=== PATIENT | male | born 1945 | race Caucasian/White ===

== ENCOUNTER 2018-01-07 11:42 | Observation (INO) | payer OTHER ==
[2018-01-07 12:32] LABS: Absolute Lymphocytes (CBC) 0.5 K/uL (0.7-4.9); Absolute Monocytes 0.4 K/uL (0.1-1.3); Absolute Neutrophil 7.7 K/uL (1.8-8.0); Basophils % 0.4 % (0-1.3); Eosinophils % 0.5 % (0-4.4); Hematocrit 44.1 % (39.6-49.0); Lymphocytes % 6.1 % (15.3-44.8); MCH 31.3 pg (27.0-35.0); MCV 92.2 fL (80-100); MPV 10.3 fL (7.6-11.3); Monocytes % 4.4 % (3.3-12.3); RBC Red Blood Cell Count 4.78 M/uL (4.33-5.43)
[2018-01-07 12:54] LABS: Albumin 3.8 g/dL (3.4-5.0); Bilirubin Direct 0.2 mg/dL (0-0.2); Bilirubin Total 0.9 mg/dL (0.2-1.0); Potassium 4.2 mmol/L (3.5-5.1); Protein, Total 8.1 g/dL (6.4-8.2)
[2018-01-07] MEDS ORDERED: ONDANSETRON 4 MG/2 ML VIAL ONE (12:58)
[2018-01-07] MEDS ORDERED: NA CHLORIDE 0.9% 500 ML ONE ×2 (12:58→16:32)
--- NOTE | 2018-01-07 14:46 | RAD REPORT ---
EXAM DESCRIPTION: CT - Abdomen Pelvis Wo Contrast - 01/07/2018 2:25 pm CLINICAL HISTORY: Abdominal pain. RLQ/lateral flank pain COMPARISON: Stone Protocol dated 08/20/2015 TECHNIQUE: CT imaging of the abdomen and pelvis was performed without contrast. Solid organ, bowel a nd vascular assessment is limited due to lack of IV and oral contrast. All CT scans are performed using dose optimization technique as appropriate and may include automated exposure control or mA/KV adjustment according to patient size. FINDINGS: The lower lung jay are clear. The liver, spleen, pancreas, adrenal glands and left kidney are within normal limits for a limited no n-contrast examination.Moderate right hydronephrosis and hydroureter is present caused by a 5 mm ston e (300 HU) mid right ureter. No bowel obstruction, free air, free fluid or abscess. Sigmoid diverticulosis coli is present without diverticulitis. The appendix is not identified as a discrete structure, however, no secondary findin gs of appendicitis are identified. Prominent degenerative changes are present L5-S1.Moderate to large fat containing left inguinal herni a. IMPRESSION: Moderate right hydronephrosis and hydroureter caused by 5 mm calculus mid right ureter. A limited non-contrast examination was performed as detailed.
[2018-01-07 15:42] LABS: Urine Bacteria <20 /HPF (NONE SEEN); Urine RBC <5 /HPF (NONE SEEN)
--- NOTE | 2018-01-07 15:42 | ER ---
Nurse's Notes [facility] Emergency Department Name: Ángel Saucedo Jr Age: 72 yrs Sex: Male : 1945 Arrival Date: 01/07/2018 Time: 11:44 Bed 5 Private MD: Jj Steel Diagnosis: Hydronephrosis with renal and ureteral calculous obstruction-Right;Acute kidney failure Presentation: 01/07 11:59 Presenting complaint: RLQ pain and fever x 2 days. TMAX 101. Transition of care: hb patient was not received from another setting of care. Onset of symptoms was January 06, 2018. Risk Assessment: Do you want to hurt yourself or someone else? Patient reports no desire to harm self or others. Care prior to arrival: None. 11:59 Method Of Arrival: Ambulatory 11:59 Acuity: DES 3 hb 12:30 Initial Sepsis Screen: Does the patient meet any 2 criteria? HR > 90 bpm. No. Patient's aj1 initial sepsis screen is negative. Does the patient have a suspected source of infection? Yes: Acute abdominal pain. Historical: - Allergies: 12:06 No Known Allergies; hb - Home Meds: 12:06 losartan-hydrochlorothiazide 50-12.5 mg oral tab 1 tab once daily [Active]; amlodipine hb 10 mg tab 1 tab once daily [Active]; metformin 1,000 mg Oral tab 1 tab 2 times per day [Active]; simvastatin 40 mg Oral tab 1 tab once daily [Active]; pantoprazole 40 mg oral TbEC 1 tab once daily [Active]; meloxicam 15 mg oral tab 1 tab once daily [Active]; aspirin 81 mg oral TbEC [Active]; Centrum Silver 400-250 mcg oral chew [Active]; glucosamine-chondroitin 500-400 mg oral cap [Active]; Viagra 100 mg Oral tab 1 tab once daily [Active]; Farxiga 5 mg oral tab 1 tab once daily [Active]; - PMHx: 18:21 Hypertension; Diabetes - NIDDM; GERD; Hyperlipidemia; aj1 - Immunization history:: Adult Immunizations up to date. - Social history:: Smoking status: Patient/guardian denies using tobacco. - Ebola Screening: : No symptoms or risks identified at this time. Screenin:06 Abuse screen: Denies threats or abuse. Denies injuries from another. Nutritional hb screening: No deficits noted. Tuberculosis screening: No symptoms or risk factors identified. Fall Risk None identified. Assessment: 12:30 General: Appears in no apparent distress. uncomfortable, Behavior is calm, cooperative, aj1 appropriate for age. Pain: Complains of pain in right lower quadrant Pain currently is 3 out of 10 on a pain scale. Neuro: Level of Consciousness is awake, alert, obeys commands. Cardiovascular: Patient's skin is warm and dry. Respiratory: Airway is patent Respiratory effort is even, unlabored, Respiratory pattern is regular, symmetrical. GI: Abdomen is non-distended, Bowel sounds present X 4 quads. Abd is soft X 4 quads Reports lower abdominal pain. : No signs and/or symptoms were reported regarding the genitourinary system. EENT: No signs and/or symptoms were reported regarding the EENT system. Derm: No signs and/or symptoms reported regarding the dermatologic system. Skin is pink, warm \T\ dry. normal. Musculoskeletal: No signs and/or symptoms reported regarding the musculoskeletal system. Circulation, motion, and sensation intact. 12:47 Reassessment: Notified CT that patient has finished his contrast. aj1 13:12 Reassessment: Patient states that he is not nauseated and does not want to take the aj1 Zofran at this time. 13:12 Reassessment: Patient appears in no apparent distress at this time. No changes from aj1 previously documented assessment. Patient and/or family updated on plan of care and expected duration. Pain level reassessed. Patient is alert, oriented x 3, equal unlabored respirations, skin warm/dry/pink. 14:30 Reassessment: Patient appears in no apparent distress at this time. No changes from aj1 previously documented assessment. Patient and/or family updated on plan of care and expected duration. Pain level reassessed. Patient is alert, oriented x 3, equal unlabored respirations, skin warm/dry/pink. 15:10 Reassessment: Patient states that he does not want to have his IV restarted., states aj1 that he is going to leave in 30 minutes. Notified JESSICA Ledesma. 16:30 Reassessment: Patient appears in no apparent distress at this time. No changes from aj1 previously documented assessment. Patient and/or family updated on plan of care and expected duration. Pain level reassessed. Patient is alert, oriented x 3, equal unlabored respirations, skin warm/dry/pink. 17:30 Reassessment: Patient appears in no apparent distress at this time. No changes from andrew1 previously documented assessment. Patient and/or family updated on plan of care and expected duration. Pain level reassessed. Patient is alert, oriented x 3, equal unlabored respirations, skin warm/dry/pink. 17:45 Reassessment: Patient admit pending being seen by Dr. Mosley. JESSICA Ledesma spoke to Dr. sirisha Mosley on the phone who said he is on his way to see the patient now. 17:55 Reassessment: Notified JESSICA Ledesma of patient's temperature. Order received to sirisha administer 1 Gram Tylenol PO and given an additional 1 Gm of Rocephin IV to patient. 18:00 Reassessment: Patient states that he is not in pain and he is not feeling nauseated. He sirisha does not want pain or nausea medication. 18:17 Reassessment: Dr. Mosley at bedside. aj1 Vital Signs: 11:59 BP 146 / 84; Pulse 109; Resp 16; Temp 99; Pulse Ox 100% on R/A; Pain 3/10; hb 12:30 BP 139 / 75; Pulse 98; Resp 18; Pulse Ox 97% on R/A; aj1 13:30 BP 158 / 89; Pulse 109; Resp 18; Pulse Ox 98% on R/A; aj1 14:30 BP 134 / 90; Pulse 106; Resp 20; Pulse Ox 96% on R/A; aj1 16:30 BP 138 / 79; Pulse 116; Resp 20; Pulse Ox 95% ; aj1 17:30 BP 134 / 73; Pulse 111; Resp 20; Pulse Ox 95% ; aj1 17:50 BP 144 / 71; Pulse 114; Resp 20; Temp 101.6(O); Pulse Ox 95% on R/A; aj1 18:22 BP 152 / 64; Pulse 113; Resp 20; Pulse Ox 95% on R/A; aj1 ED Course: 11:44 Patient arrived in ED. sb2 11:44 Jj Steel MD is Private Physician. sb2 11:54 Ayla Rodrigues, MARY is Primary Nurse. hb 11:54 Carlito Simeon PA is PHCP. cp 11:54 Carlito Durham MD is Attending Physician. cp 12:01 Triage completed. hb 12:02 Arm band placed on right wrist. hb 12:20 Primary Nurse role handed off by Ayla Rodrigues, RN aj1 12:20 Alma Douglas, RN is Primary Nurse. aj1 12:27 Initial lab(s) drawn, by me, sent to lab. Inserted saline lock: 22 gauge in right jb1 antecubital area, using aseptic technique. Blood collected. 12:30 Patient has correct armband on for positive identification. Bed in low position. Call aj1 light in reach. Side rails up X 1. 12:30 No provider procedures requiring assistance completed. aj1 14:24 CT completed. Patient moved to CT via wheelchair. Patient moved back from CT. cw1 14:57 Patient's IV has infiltrated. Swelling noted to insertion site, patient denies pain. IV aj1 was dc'd, pressure drsg applied. No redness noted, IV catheter intact. Site covered with 4x4 and secured with tape. 15:26 Urine collected: clean catch specimen, cloudy, diane colored. jb1 15:36 Inserted saline lock: 22 gauge in left antecubital area, using aseptic technique. jb1 15:40 Guru Herndon DO is Hospitalizing Provider. cp 16:26 X-ray completed. Portable x-ray completed in exam room. Patient tolerated procedure la2 well. Administered Medications: 13:12 Drug: NS 0.9% 500 ml Route: IV; Rate: bolus; Site: left forearm; aj1 16:30 Follow up: IV Status: Completed infusion; IV Intake: 500ml aj1 16:31 Drug: Rocephin - (cefTRIAXone) 1 grams Route: IVPB; Infused Over: 30 mins; Site: left aj1 antecubital; 18:10 Follow up: Response: No adverse reaction aj1 18:10 Follow up: IV Status: Completed infusion aj1 16:31 Drug: NS 0.9% 500 ml Route: IV; Rate: bolus; Site: left antecubital; aj1 18:10 Follow up: IV Status: Completed infusion; IV Intake: 500ml aj1 18:09 Not Given (Patient Refused): Zofran 4 mg IVP once; over 2 minutes aj1 18:09 Not Given (Patient Refused): morphine 4 mg IVP once aj1 18:09 Not Given (Patient Refused): Zofran 4 mg IVP once; over 2 minutes aj1 18:11 Drug: Tylenol 1000 mg Route: PO; aj1 18:45 Follow up: Response: No adverse reaction aj1 18:12 Drug: Rocephin 1 grams Route: IV; Rate: calculated rate; Site: left antecubital; aj1 18:45 Follow up: IV Status: Completed infusion aj1 Intake: 16:30 IV: 500ml; Total: 500ml. aj1 18:10 IV: 500ml; Total: 1000ml. aj1 Outcome: 15:41 Decision to Hospitalize by Provider. cp 19:19 Admitted to OR aj1 19:19 Condition: stable 19:19 Discharge instructions given to patient, Instructed on the need for admit, Demonstrated understanding of instructions. 19:20 Patient left the ED. aj1 Signatures: Germain Figueroa jb1 Alma Douglas RN RN aj1 Brianna Martinez cw1 Carlito Simeon PA PA cp Ayla Rodrigues RN RN Emily Duvall la2 Kera Padgett sb2 Corrections: (The following items were deleted from the chart) 18:16 18:13 Reassessment: aj1 aj1
--- NOTE | 2018-01-07 15:42 | EDPHYS ---
Physician Documentation [facility] Name: Ángel Saucedo Jr Age: 72 yrs Sex: Male : 1945 Arrival Date: 01/07/2018 Time: 11:44 Bed 5 Private MD: Jj Steel ED Physician Carlito Durham HPI: 01/07 12:20 This 72 yrs old Male presents to ER via Ambulatory with complaints of cp Abdominal Pain, Fever. 12:20 The patient presents with abdominal pain right lower quadrant, right lower flank area. cp 12:20 Onset: The symptoms/episode began/occurred gradually, and became worse 3 day(s) ago. cp 12:20 The symptoms do not radiate. Associated signs and symptoms: Pertinent positives: cp constipation, fever, Pertinent negatives: chest pain, diarrhea, dysuria, headache, testicular pain, vomiting. Severity of pain: in the emergency department the pain is unchanged despite home interventions. Historical: - Allergies: 12:06 No Known Allergies; hb - Home Meds: 12:06 losartan-hydrochlorothiazide 50-12.5 mg oral tab 1 tab once daily [Active]; amlodipine hb 10 mg tab 1 tab once daily [Active]; metformin 1,000 mg Oral tab 1 tab 2 times per day [Active]; simvastatin 40 mg Oral tab 1 tab once daily [Active]; pantoprazole 40 mg oral TbEC 1 tab once daily [Active]; meloxicam 15 mg oral tab 1 tab once daily [Active]; aspirin 81 mg oral TbEC [Active]; Centrum Silver 400-250 mcg oral chew [Active]; glucosamine-chondroitin 500-400 mg oral cap [Active]; Viagra 100 mg Oral tab 1 tab once daily [Active]; Farxiga 5 mg oral tab 1 tab once daily [Active]; - PMHx: 18:21 Hypertension; Diabetes - NIDDM; GERD; Hyperlipidemia; aj1 - Immunization history:: Adult Immunizations up to date. - Social history:: Smoking status: Patient/guardian denies using tobacco. - Ebola Screening: : No symptoms or risks identified at this time. ROS: 12:23 Constitutional: Negative for body aches, chills, fever, poor PO intake. cp 12:23 Eyes: Negative for injury, pain, redness, and discharge. cp 12:23 ENT: Negative for drainage from ear(s), ear pain, sore throat, difficulty swallowing, difficulty handling secretions, hoarseness. 12:23 Cardiovascular: Negative for chest pain, edema, palpitations. 12:23 Respiratory: Negative for cough, shortness of breath, wheezing. 12:23 Abdomen/GI: Positive for abdominal pain, constipation, of the anterior aspect of right lateral abdomen and right lower quadrant, Negative for vomiting, diarrhea, anorexia, hematemesis, black/tarry stool, rectal bleeding. 12:23 Back: Negative for injury or acute deformity, decreased range of motion, pain at rest. 12:23 : Negative for urinary symptoms, testicular pain 12:23 MS/extremity: Negative for decreased range of motion, pain, paresthesias. 12:23 Skin: Negative for cellulitis, rash. 12:23 Neuro: Negative for altered mental status, dizziness, headache, weakness. 12:23 All other systems are negative. Exam: 12:27 Constitutional: The patient appears in no acute distress, alert, awake, cp non-diaphoretic, non-toxic, well developed, well nourished. 12:27 Head/Face: Normocephalic, atraumatic. cp 12:27 Eyes: Periorbital structures: appear normal, Pupils: equal, round, and reactive to light and accomodation, Extraocular movements: intact throughout, Conjunctiva: normal, no exudate, no injection, Sclera: no appreciated abnormality, Lids and lashes: appear normal, bilaterally. 12:27 ENT: External ear(s): are unremarkable, Nose: is normal, Mouth: Lips: moist, Oral mucosa: pink and intact, moist, Posterior pharynx: is normal, airway is patent, no erythema, no exudate, Voice: is normal. 12:27 Neck: ROM/movement: is normal, is supple, without pain, no range of motions limitations, no nuchal rigidity. 12:27 Chest/axilla: Inspection: normal, Palpation: is normal, no crepitus, no tenderness. 12:27 Cardiovascular: Rate: tachycardic, Rhythm: regular, Edema: is not appreciated, JVD: is not appreciated. 12:27 Respiratory: the patient does not display signs of respiratory distress, Respirations: normal, no use of accessory muscles, no retractions, no splinting, no tachypnea, labored breathing, is not present, Breath sounds: are clear throughout, no decreased breath sounds, no stridor, no wheezing. 12:27 Abdomen/GI: Inspection: abdomen appears normal, Bowel sounds: active, all quadrants, Palpation: soft, in all quadrants, mild abdominal tenderness, in the anterior aspect of right lateral abdomen and right lower quadrant, rebound tenderness, is not appreciated, involuntary guarding, is not appreciated. 12:27 Back: ROM is normal, CVA tenderness, is absent. 12:27 Musculoskeletal/extremity: Exam is negative for calf tenderness, decreased range of motion, edema. 12:27 Skin: cellulitis, is not appreciated, no rash present. 12:27 Neuro: Orientation: to person, place \T\ time. Mentation: is normal, Cerebellar function: is grossly normal, Motor: moves all fours, strength is normal, Sensation: is normal, Gait: is steady, at a normal pace, without difficulty. Vital Signs: 11:59 BP 146 / 84; Pulse 109; Resp 16; Temp 99; Pulse Ox 100% on R/A; Pain 3/10; hb 12:30 BP 139 / 75; Pulse 98; Resp 18; Pulse Ox 97% on R/A; aj1 13:30 BP 158 / 89; Pulse 109; Resp 18; Pulse Ox 98% on R/A; aj1 14:30 BP 134 / 90; Pulse 106; Resp 20; Pulse Ox 96% on R/A; aj1 16:30 BP 138 / 79; Pulse 116; Resp 20; Pulse Ox 95% ; aj1 17:30 BP 134 / 73; Pulse 111; Resp 20; Pulse Ox 95% ; aj1 17:50 BP 144 / 71; Pulse 114; Resp 20; Temp 101.6(O); Pulse Ox 95% on R/A; aj1 18:22 BP 152 / 64; Pulse 113; Resp 20; Pulse Ox 95% on R/A; aj1 MDM: 11:54 Patient medically screened. cp 13:00 Differential diagnosis: bowel obstruction, cholecystitis, Cholelithiasis, cp diverticulitis, gastritis, pancreatitis, Pyelonephritis, Ureterolithiasis, urinary tract infection. 15:25 Data reviewed: vital signs, nurses notes, lab test result(s), radiologic studies, CT cp scan, and as a result, I will admit patient. 15:28 Physician consultation: Isis Mosley MD was called at 15:22, was contacted at 15:22, regarding consult, patient's condition, would like admission per Dr. Guru Herndon DO. 01/07 12:16 Order name: Basic Metabolic Panel 01/07 12:16 Order name: CBC with Diff cp 01/07 12:16 Order name: Creatinine for Radiology 01/07 12:16 Order name: Hepatic Function cp 01/07 12:16 Order name: Lipase cp 01/07 12:16 Order name: Lactate 01/07 12:16 Order name: Urine Microscopic Only 01/07 12:37 Order name: CBC with Automated Diff; Complete Time: 13:11 EDMS 01/07 13:24 Interpretation: Normal except: PLT 149; HUNTER% 88.6; LYM% 6.1; LYMA 0.5. 01/07 12:52 Order name: Creatinine (Radiology Only); Complete Time: 13:11 EDMS 01/07 12:54 Order name: Basic Metabolic Panel; Complete Time: 13:11 EDMS 01/07 13:24 Interpretation: Normal except: GLUC 273; BUN 23; CRE 2.10; GFR 31. 01/07 12:54 Order name: Liver (Hepatic) Function; Complete Time: 13:11 EDMS 01/07 12:54 Order name: Lipase; Complete Time: 13:11 EDMS 01/07 13:11 Order name: Lactate; Complete Time: 13:23 EDMS 01/07 13:23 Interpretation: LAC 1.9; Reviewed. 01/07 15:43 Order name: Urine Microscopic Only; Complete Time: 17:07 EDMS 01/07 12:16 Order name: IV Saline Lock; Complete Time: 12:28 01/07 13:12 Order name: CT Abd/Pelvis - Without Cont 01/07 14:49 Order name: CT; Complete Time: 15:14 EDMS 01/07 15:24 Order name: XRAY KUB 01/07 16:29 Order name: Urine Dipstick--Ancillary (enter results) 01/07 16:39 Order name: RAD; Complete Time: 17:07 EDMS 01/07 12:16 Order name: Labs collected and sent; Complete Time: 12:28 01/07 12:16 Order name: Urine Dipstick-Ancillary (obtain specimen); Complete Time: 15:26 cp 01/07 15:17 Order name: NPO; Complete Time: 16:09 cp 01/07 15:23 Order name: NPO; Complete Time: 16:09 cp 01/07 17:44 Order name: Vital Signs: recheck to include temp; Complete Time: 17:56 cp Administered Medications: 13:12 Drug: NS 0.9% 500 ml Route: IV; Rate: bolus; Site: left forearm; aj1 16:30 Follow up: IV Status: Completed infusion; IV Intake: 500ml aj1 16:31 Drug: Rocephin - (cefTRIAXone) 1 grams Route: IVPB; Infused Over: 30 mins; Site: left aj1 antecubital; 18:10 Follow up: Response: No adverse reaction aj1 18:10 Follow up: IV Status: Completed infusion aj1 16:31 Drug: NS 0.9% 500 ml Route: IV; Rate: bolus; Site: left antecubital; aj1 18:10 Follow up: IV Status: Completed infusion; IV Intake: 500ml aj1 18:09 Not Given (Patient Refused): Zofran 4 mg IVP once; over 2 minutes aj1 18:09 Not Given (Patient Refused): morphine 4 mg IVP once aj1 18:09 Not Given (Patient Refused): Zofran 4 mg IVP once; over 2 minutes aj1 18:11 Drug: Tylenol 1000 mg Route: PO; aj1 18:45 Follow up: Response: No adverse reaction aj1 18:12 Drug: Rocephin 1 grams Route: IV; Rate: calculated rate; Site: left antecubital; aj1 18:45 Follow up: IV Status: Completed infusion aj1 Disposition: 01/07/18 15:41 Hospitalization ordered by Guru Herndon for Observation. Preliminary diagnosis are Hydronephrosis with renal and ureteral calculous obstruction - Right, Acute kidney failure. - Bed requested for Telemetry/MedSurg (observation). - Status is Observation. aj1 - Condition is Stable. - Problem is new. - Symptoms have improved. UTI on Admission? No Addendum: 01/09/2018 07:26 Co-signature as Attending Physician, Carlito Durham MD I agree with the assessment and c friedman plan of care. Signatures: Dispatcher [employer] Alexandra Concepcion Alma, MARY RN aj1 Carlito Durham MD MD cha Page, Corey, PA PA cp Ayla Rodrigues, MARY HERNANDEZ Corrections: (The following items were deleted from the chart) 01/07 13:24 13:24 Normal except: PLT 149; HUNTER% 88.6; LYM% 6.1. cp cp 17:39 15:41 Hospitalization Ordered by [facility] for Observation. Preliminary bd diagnosis is Hydronephrosis with renal and ureteral calculous obstruction - Right; Acute kidney failure. Bed requested for Telemetry/MedSurg (observation). Status is Observation. Condition is Stable. Problem is new. Symptoms have improved. UTI on Admission? No. cp 18:47 17:39 01/07/2018 15:41 Hospitalization Ordered by [facility] for Observation. bd Preliminary diagnosis is Hydronephrosis with renal and ureteral calculous obstruction - Right; Acute kidney failure. Bed requested for Telemetry/MedSurg (observation). Status is Observation. Condition is Stable. Problem is new. Symptoms have improved. UTI on Admission? No. bd 19:20 18:47 01/07/2018 15:41 Hospitalization Ordered by [facility] for Observation. aj1 Preliminary diagnosis is Hydronephrosis with renal and ureteral calculous obstruction - Right; Acute kidney failure. Bed requested for Telemetry/MedSurg (observation). Status is Observation. Condition is Stable. Problem is new. Symptoms have improved. UTI on Admission? No. bd
[2018-01-07 15:43] LABS: Urine Culture Reflex Order REFLEXED
[2018-01-07] MEDS ORDERED: TRAMADOL HCL 50 MG TAB PO PRN (15:51)
[2018-01-07] MEDS ORDERED: HYDRALAZINE HCL 20 MG/ML VIAL IV PRN (15:51)
[2018-01-07] MEDS ORDERED: HYDROCODONE/APAP 7.5/325 MG TAB PO PRN (15:51)
[2018-01-07] MEDS ORDERED: ACETAMINOPHEN 500 MG TAB PO PRN (15:51)
[2018-01-07] MEDS ORDERED: MORPHINE 2 MG/ML SYR IV PRN (15:51)
[2018-01-07] MEDS ORDERED: ONDANSETRON 4 MG/2 ML VIAL IV PRN (15:51)
[2018-01-07] MEDS ORDERED: NA CHLORIDE 0.9% 1,000 ML IV SCH (16:00)
--- NOTE | 2018-01-07 16:06 | P.HP ---
Certification for Inpatient Patient admitted to: Observation With expected LOS: <2 Midnights Patient will require the following post-hospital care: None Practitioner: I am a practitioner with admitting privileges, knowledge of patient current condition, hospital course, and medical plan of care. Services: Services provided to patient in accordance with Admission requirements found in Title 42 Section 412.3 of the Code of Federal Regulations Patient History Date of Service: 01/07/18 Primary Care Provider: Dr. Steel( I am covering for him) Reason for admission: Right flank pain History of Present Illness: 72-year-old male presented emergency room with increasing right flank pain. She reports increasing right flank plain over the last several days. Pain is mainly to the right upper quadrant and lower quadrant. Symptoms have not improved. He denies any significant nausea, vomiting. Patient reports a history of right kidney stone in the past. He also reports a history of diabetes, hypertension, GERD, hyperlipidemia. About a year and a half ago he had lithotripsy done with urology. In the ER patient evaluated. White count 8.7, hemoglobin 15. Sodium 136, potassium 4.2, BUN of 23, creatinine 2.0 with a GFR of 31. Glucose 273. CT scan shows to right hydronephrosis with hydroureter with a 5 mm stone at the mid right ureter. Patient will be admitted for further evaluation and treatment. Urology consulted in the emergency room. When I saw the patient ER, he appeared comfortable. Pain well controlled. No significant hematuria noted. Home medications list reviewed: Yes - Past Medical/Surgical History Diabetic: Yes -: Diabetes mellitus type 2, non-insulin dependent -: Hypertension -: GERD -: Nephrolithiasis -: Hyperlipidemia -: Appendectomy -: Lithotripsy Psychosocial/ Personal History: Patient - Family History Father -: Lung disease Mother -: Other (see notes) (Dementia) Sister -: Other (see notes) (Parkinson's) - Social History Smoking Status: Never smoker Alcohol use: Yes CD- Drugs: No Caffeine use: Yes Place of Residence: Home Review of Systems General: As per HPI Eyes: Unremarkable ENT: Unremarkable Respiratory: Unremarkable Cardiovascular: Unremarkable Gastrointestinal: As per HPI Genitourinary: As per HPI Musculoskeletal: Unremarkable Integumentary: Unremarkable Neurological: Unremarkable Lymphatics: Unremarkable Physical Examination - Physical Exam General: Alert, In no apparent distress, Oriented x3, Cooperative HEENT: Atraumatic, Normocephalic, PERRLA, Mucous membr. moist/pink Neck: Supple, No Thyromegaly Respiratory: Clear to auscultation bilaterally, Normal air movement Cardiovascular: Normal pulses, Regular rate/rhythm Gastrointestinal: Normal bowel sounds, Soft and benign, Non-distended, No masses , No rebound, No guarding, Tenderness (Pain to the right flank is dull) Musculoskeletal: No erythema, No tenderness, No warmth Integumentary: No tenderness/swelling, No erythema, No warmth, No cyanosis Neurological: Normal speech, Normal strength at 5/5 x4 extr, Normal tone, Normal affect - Studies Laboratory Data (last 24 hrs) 01/07/18 12:20: Creatinine 2.00 H 01/07/18 12:20: WBC 8.7, Hgb 15.0, Hct 44.1, Plt Count 149 L 01/07/18 12:20: Sodium 136, Potassium 4.2, BUN 23 H, Creatinine 2.10 H, Glucose 273 H, Total Bilirubin 0.9, AST 18, ALT 25, Alkaline Phosphatase 88, Lipase 163 Assessment and Plan - Plan Impression: Right flank pain secondary to right mid ureter calculus with right hydronephrosis and hydroureter complicated with acute renal failure Diabetes mellitus type 2, non insulin dependent Hypertension Hyperlipidemia GERD Plan: Right flank pain secondary to right mid ureter calculus with right hydronephrosis and hydroureter complicated with acute renal failure: Patient will be admitted. Will start IV antibiotic therapy. Will continue with IV fluids. ER has spoken to urology. Patient will remain NPO after midnight. Urological intervention planned for tomorrow. Will provide medication for pain. No Duarte is required at this time. Will start Flomax. Will discontinue nonsteroidal anti-inflammatories. Will recheck and monitor lab closely. Patient with history of ureteral stone in the past requiring lithotripsy. Diabetes mellitus type 2, non insulin dependent: Will hold his diabetic medication at this time. Will provide insulin sliding scale. Hypertension: We will hold losartan/hydrochlorothiazide. Will continue with Norvasc. Will provide hydralazine IV as needed. Hyperlipidemia: Will continue with his medication. GERD: Will continue with medication. Discharge Plan: Home Plan to discharge in: 24 Hours - Advance Directives Does patient have a Living Will: No Does patient have a Durable POA for Healthcare: No - Code Status/Comfort Care Code Status Assessed: Yes (Patient full code.) Time Spent Managing Pts Care (In Minutes): 55
[2018-01-07] MEDS: INSULIN -REGULAR HUMAN 50 UNIT/0.5 ML ML SQ SCH ×2 (16:30→21:00)
[2018-01-07] MEDS ORDERED: CEFTRIAXONE/SWI 1gm 1 GM/10 ML SYR ONE ×2 (16:33→18:12)
--- NOTE | 2018-01-07 16:38 | RAD REPORT ---
EXAM DESCRIPTION: RAD - Abdomen 1 View (KUB) - 01/07/2018 4:27 pm CLINICAL HISTORY: right ureter stone Pain COMPARISON: Abdomen 1 View (KUB) dated 09/18/2015; Abdomen 1 View (KUB) dated 09/08/2015; Abdomen 1 Vie w (KUB) dated 09/03/2015 FINDINGS: The bowel gas pattern is non-obstructive. No evidence of free air or pneumatosis. The maria luisa ent's known small right-sided ureter stone is obscured largely by bowel content and oral contrast.
[2018-01-07] MEDS ORDERED: ACETAMINOPHEN 500 MG TAB ONE (18:10)
[2018-01-07] MEDS ORDERED: MAGNESIUM HYDROXIDE 8% 30 ML PO PRN (18:21)
[2018-01-07] MEDS ORDERED: FENTANYL CITR 100 MCG/2 ML ONE ×2 (18:51→19:20)
[2018-01-07] MEDS ORDERED: PROPOFOL 200 MG/20 ML VIAL IV ONE (18:51)
[2018-01-07] MEDS ORDERED: NA CHLORIDE 0.9% 1,000 ML ONE (19:00)
[2018-01-07] MEDS ORDERED: ONDANSETRON HCL 40 MG/20 ML VIAL ONE (19:17)
[2018-01-07] MEDS ORDERED: KETOROLAC 30 MG/ML INJ ONE (19:17)
[2018-01-07] MEDS ORDERED: DEXAMETHASONE 10 MG/ML VIAL ONE (19:18)
[2018-01-07] MEDS ORDERED: Mastisol Adhesive Liq ONE (19:28)
--- NOTE | 2018-01-07 19:41 | RAD REPORT ---
EXAM DESCRIPTION: RAD - Urethrocystogrphy Retrograde - 01/07/2018 7:32 pm CLINICAL HISTORY: KIDNEY STONE COMPARISON: No comparisons FINDINGS: Fluoroscopic imaging is submitted of the abdomen from right sided stent placement procedur e. Details of the procedure not available. Total fluoro time: 0.2 minutes.
[2018-01-07 20:12] LABS: Urine Blood TRACE (NEG); Urine Glucose 3+ (NEG); Urine Protein NEGATIVE (NEG); Urine Specific Gravity 1.015 (1.005-1.030)
[2018-01-07 20:49] LABS: Urine Amorphous Sediment 2+ /HPF (NONE SEEN); Urine Bacteria 20-50 /HPF (NONE SEEN); Urine Culture Reflex Order REFLEXED
[2018-01-07] MEDS ORDERED: ATORVASTATIN 20 MG TAB PO SCH (21:00)
[2018-01-07] MEDS ORDERED: TAMSULOSIN 0.4 MG SR CAP PO SCH (21:00)
[2018-01-07 21:44] LABS: Urine Appearance TURBID; Urine Blood 3+ (NEG); Urine Color DK YELLOW; Urine Glucose 3+ (NEG); Urine Protein 2+ (NEG); Urine Specific Gravity >=1.030 (1.005-1.030)
[2018-01-07 21:50] LABS: Urine Bilirubin NEGATIVE (NEG); Urine Microscopic Reflex ORDER UMIC
[2018-01-07] MEDS: DOCUSATE CALCIUM 240 MG CAP PO SCH (21:52)
[2018-01-07 22:00] LABS: Urine Bacteria <20 /HPF (NONE SEEN); Urine Culture Reflex Order NOT NEEDED
[2018-01-07 22:01] LABS: Urine RBC >50 /HPF (NONE SEEN)
--- NOTE | 2018-01-08 01:18 | CON ---
History Of Present Illness: This is a pleasant 72-year-old male, who has a history of stones. He was in good state of health until October 24, 2017, when he developed sudden right flank pain. The pain went away after a few hours and then today he developed right lower quadrant pain, thought he had a gallbladder issue, came to the emergency room and CAT scan was done, showing 5 mm stone in the right mid ureter, Hounsfield unit 300, consistent with uric acid stone, has some minor hydro behind the stone. He has complained of temperature 101 in the ER, however. Past Medical History: Diabetes type 2, hypertension, GERD, nephrolithiasis, hyperlipidemia, appendectomy, lithotripsy. Psychosocial History: Personal: Patient is . Family History: Father had lung disease. Mother had dementia. Sister has Parkinson's. Social History: Never smoked. Some alcohol use. No drug use. Some caffeine use. Resides at home. Review of Systems: General: As per H and P. HEENT: Unremarkable. Respiratory: Unremarkable. Cardiovascular: Unremarkable. Gastrointestinal: Unremarkable. Genitourinary: As per H and P. Musculoskeletal: Unremarkable. Skin: Unremarkable. Neurologic: Unremarkable. Lymphatic: Unremarkable. Physical Examination: Vital Signs: Patient is afebrile. General: Alert, in no acute distress, oriented x3, cooperative, afebrile. Vital Signs: Stable. HEENT: Atraumatic, normocephalic. Neck: Supple. Respiratory: Clear. Cardiovascular: S1, S2. Gastrointestinal: Soft, nontender. Musculoskeletal: No erythema, no warmth, no tenderness. Skin: No rashes. Neurologic: Alert and oriented. Laboratory Studies: Showed UA still pending, RBC less than 5, WBC less than 10 , pH is still pending. Hematology; white count 8.7, H and H of 15 and 44, platelet count 149. Chemistry shows elevated creatinine of 2.1, BUN 23, sodium 136, potassium 4.2, chloride 104, carbon dioxide 23, glucose 223. CT scan as mentioned above. KUB done, but there is contrast in the bowels, unable to see the stone. Assessment: A 5 mm mid ureteral stone, diabetic patient, possible fever, normal white count. Plan: Plan is to go ahead and place a stent tonight. Stent may possible fragment the uric acid stone, then he can pass the fragments. The stent will help the obstruction due to hydronephrosis and less chance of sepsis, and deal with the stone at a later time. We will admit him tonight after surgery, possibly go home in the morning. Patient was given all the general information, alternatives, and risks, and wishes to proceed. SHERIN/ISAAC Voice ID: [id number] Report ID: [id number] ALMA
[2018-01-08 05:19] LABS: Absolute Lymphocytes (CBC) 0.4 K/uL (0.7-4.9); Absolute Monocytes 0.2 K/uL (0.1-1.3); Absolute Neutrophil 9.8 K/uL (1.8-8.0); Lymphocytes % 3.4 % (15.3-44.8); MCH 31.9 pg (27.0-35.0); MCV 92.2 fL (80-100); Monocytes % 2.3 % (3.3-12.3); RBC Red Blood Cell Count 4.23 M/uL (4.33-5.43)
[2018-01-08 05:30] LABS: Magnesium 2.5 mg/dL (1.8-2.4); Potassium 4.4 mmol/L (3.5-5.1)
--- NOTE | 2018-01-08 05:42 | OP ---
Surgeon: Isis Mosley MD Anesthesiologist: Dr. Perez. Preoperative Diagnosis: Right mid urolithiasis, Hounsfield unit 300, possible uric acid stone, hist ory of fever and hydronephrosis, history of diabetes. Postoperative Diagnosis: Right mid urolithiasis, Hounsfield unit 300, possible uric acid stone, hist ory of fever and hydronephrosis, history of diabetes. Procedure Performed: Cystoscopy, right retrograde pyelogram, and collection of urine from right carolyne l pelvis for culture and placement of a 6-Lao x 28 cm double-J stent with string attached to the s tent and taped to the penis. Anesthesia: General. Estimated Blood Loss: Minimal. Replacement: See record. Path Specimen: None. Complications: None. Drains: As above. Indications: The pleasant is a 72-year-old gentleman, presented with a right lower quadrant pain. W orkup revealed a stone as mentioned above. He was given all the general information, alternatives, r isks and wished to proceed. Description Of Procedure: He got 2 g of Rocephin preoperatively and was taken to the operative room, placed in a supine lithotomy position. He was prepped and draped in usual sterile fashion and herni a was noted in the left inguinal area. Cystoscopy was performed with a 21-Lao and 30-degree lens. Penile and bulbar urethra, prostatic urethra normal. In the prostatic urethra, small median lobe t hat was nonobstructive. Both orifices were following their normal anatomical position. The patient' s bladder was surveyed with a 30 and 70-degree lens. No other abnormalities were found. We then swi tched back to a 30-degree lens and perform a right retrograde pyelogram. We ureter opened all the wa y up to the renal pelvis. Obstruction revealed and the stone was not seen. He has had a slight hydr oureter down to the right lower ureter area. I would not pass a wire easily and I was passed a doubl e-J stent after he was measured stent coil in the renal pelvis and also in the bladder with good effl ux of urine. The patient tolerated the procedure well, went to recovery room in stable condition aft er his bladder was drained. PB/MODL Voice ID: [id number] Report ID: [id number]
[2018-01-08 05:59] LABS: Blood Morphology Comment NOT SEEN (NOT SEEN); Platelet Estimate ADEQ
[2018-01-08] MEDS ORDERED: PANTOPRAZOLE 40MG TABLET PO SCH (06:30)
[2018-01-08] MEDS: INSULIN -REGULAR HUMAN 50 UNIT/0.5 ML ML SQ SCH ×2 (07:30→11:30)
--- NOTE | 2018-01-08 08:53 | RAD REPORT ---
EXAM DESCRIPTION: CT - Stone Protocol - 01/08/2018 8:30 am CLINICAL HISTORY: Abdominal pain, flank pain, right ureteral stone COMPARISON: KUB January 07, CT study January 07 TECHNIQUE: Axial 5 mm thick images were obtained without oral or IV contrast. The [id number] span s the entirety of the system partially obscuring uppermost abdomen and lung bases. All CT scans are performed using dose optimization technique as appropriate and may include automated exposure control or mA/KV adjustment according to patient size. FINDINGS: Double pigtail stent has been placed in the right collecting system. Right-sided hydroneph rosis seen January 07 has resolved. No new left kidney or left collecting system finding. No suspicio us renal masses. Isodense masses and pyelonephritis are not excluded on a stone protocol CT scan. No urinary bladder suspicious finding. The previously detailed right ureteral calculus is not identifiab le along the course of the stent. This stone is not seen in the bladder in does not appear to have be en displaced retrograde into the pelvis or calices on the right. The Imaged portions of the liver, spleen and pancreas show no suspicious findings on non-contrast imaging . No gallbladder or biliary tree abnormality identified. No significant adrenal finding. No suspicious bowel findings. Large fat filled left inguinal hernia is again noted. Patient has a smaller fat filled right inguinal hernia. No free air, free fluid or inflammatory stranding. No significant bony abnormality. IMPRESSION: Pigtail stent has been placed into the right collecting system and is well positioned. R ight-sided hydronephrosis has resolved or nearly fully resolved. The previously detailed calcification is not identified within the right collecting system, along the course of the stent or in the urinary bladder. Isodense masses and pyelonephritis are not excluded on stone protocol technique.
[2018-01-08] MEDS ORDERED: AMLODIPINE 10 MG TAB PO SCH (09:00)
[2018-01-08] MEDS ORDERED: CEFTRIAXONE 1 GM/NS 50 ML 1 GM/50 ML BAG IV SCH (09:00)
[2018-01-08] MEDS: DOCUSATE CALCIUM 240 MG CAP PO SCH (09:50)
[2018-01-08 11:12] LABS: Potassium 4.1 mmol/L (3.5-5.1)
--- NOTE | 2018-01-08 11:20 | P.DS ---
Admission Date: 01/07/18 Discharge Date: 01/08/18 Primary Care Provider: Dr. Steel( I am covering for him) Disposition: ROUTINE DISCHARGE Discharge Condition: GOOD Reason for Admission: Right flank pain Consultations: Urology-Dr. Steel Procedures: Abdominal CT: COMPARISON: Stone Protocol dated 08/20/2015 TECHNIQUE: CT imaging of the abdomen and pelvis was performed without contrast. Solid organ, bowel and vascular assessment is limited due to lack of IV and oral contrast. All CT scans are performed using dose optimization technique as appropriate and may include automated exposure control or mA/KV adjustment according to patient size. FINDINGS: The lower lung jay are clear. The liver, spleen, pancreas, adrenal glands and left kidney are within normal limits for a limited non-contrast examination.Moderate right hydronephrosis and hydroureter is present caused by a 5 mm stone (300 HU) mid right ureter. No bowel obstruction, free air, free fluid or abscess. Sigmoid diverticulosis coli is present without diverticulitis. The appendix is not identified as a discrete structure, however, no secondary findings of appendicitis are identified. Prominent degenerative changes are present L5-S1.Moderate to large fat containing left inguinal hernia. IMPRESSION: Moderate right hydronephrosis and hydroureter caused by 5 mm calculus mid right ureter. A limited non-contrast examination was performed as detailed. Surgery: Surgeon: Isis Mosley MD Anesthesiologist: Dr. Perze. Preoperative Diagnosis: Right mid urolithiasis, Hounsfield unit 300, possible uric acid stone, history of fever and hydronephrosis, history of diabetes. Postoperative Diagnosis: Right mid urolithiasis, Hounsfield unit 300, possible uric acid stone, history of fever and hydronephrosis, history of diabetes. Procedure Performed: Cystoscopy, right retrograde pyelogram, and collection of urine from right renal pelvis for culture and placement of a 6-Bolivian x 28 cm double-J stent with string attached to the stent and taped to the penis. Anesthesia: General. Estimated Blood Loss: Minimal. Replacement: See record. Path Specimen: None. Complications: None. Drains: As above. Abdominal CT: COMPARISON: KUB January 07, CT study January 07 TECHNIQUE: Axial 5 mm thick images were obtained without oral or IV contrast. The [id number] spans the entirety of the system partially obscuring uppermost abdomen and lung bases. All CT scans are performed using dose optimization technique as appropriate and may include automated exposure control or mA/KV adjustment according to patient size. FINDINGS: Double pigtail stent has been placed in the right collecting system. Right-sided hydronephrosis seen January 07 has resolved. No new left kidney or left collecting system finding. No suspicious renal masses. Isodense masses and pyelonephritis are not excluded on a stone protocol CT scan. No urinary bladder suspicious finding. The previously detailed right ureteral calculus is not identifiable along the course of the stent. This stone is not seen in the bladder in does not appear to have been displaced retrograde into the pelvis or calices on the right. The Imaged portions of the liver, spleen and pancreas show no suspicious findings on non-contrast imaging. No gallbladder or biliary tree abnormality identified. No significant adrenal finding. No suspicious bowel findings. Large fat filled left inguinal hernia is again noted. Patient has a smaller fat filled right inguinal hernia. No free air, free fluid or inflammatory stranding. No significant bony abnormality. IMPRESSION: Pigtail stent has been placed into the right collecting system and is well positioned. Right-sided hydronephrosis has resolved or nearly fully resolved. The previously detailed calcification is not identified within the right collecting system, along the course of the stent or in the urinary bladder. Isodense masses and pyelonephritis are not excluded on stone protocol technique. Medical Problem List: Right flank pain secondary to right mid ureter calculus likely uric acid stone with right hydronephrosis,hydroureter, and UTI complicated with acute renal failure status post cystoscopy, right retrograde pyelogram and placement of 6 [place] by 28 cm double-J stent Diabetes mellitus type 2, non insulin dependent Hypertension Hyperlipidemia GERD Brief History of Present Illness: 72-year-old male presented emergency room with increasing right flank pain. She reports increasing right flank plain over the last several days. Pain is mainly to the right upper quadrant and lower quadrant. Symptoms have not improved. He denies any significant nausea, vomiting. Patient reports a history of right kidney stone in the past. He also reports a history of diabetes, hypertension, GERD, hyperlipidemia. About a year and a half ago he had lithotripsy done with urology. In the ER patient evaluated. White count 8.7, hemoglobin 15. Sodium 136, potassium 4.2, BUN of 23, creatinine 2.0 with a GFR of 31. Glucose 273. CT scan shows to right hydronephrosis with hydroureter with a 5 mm stone at the mid right ureter. Patient will be admitted for further evaluation and treatment. Urology consulted in the emergency room. When I saw the patient ER, he appeared comfortable. Pain well controlled. No significant hematuria noted. Hospital Course: Patient presented with right flank pain. Patient found to have right mid ureter calculus with right hydronephrosis, hydroureter and UTI complicated with acute renal failure. Patient evaluated in the emergency room. Patient seen by urology. Urological intervention was required. Cystoscopy, right retrograde pyelogram and placement of 6 [place] by 28 cm double-J stent was placed. Patient tolerated procedure well. No complication identified. Repeat CT scan showed no stone and resolution of hydronephrosis. At discharge patient without any significant pain and able to urinate. At discharge renal function also slightly improved. At discharge patient will continue with Cipro 250 mg 1 pill twice daily for 7 days. Patient will be provided a limited supply of tramadol 50 mg 1 pill 3 times a day as needed for pain. At discharge patient will follow up with urology later this week to follow up this hospitalization. Stent will need to be removed in the near future. Recommendation to recheck lab-BMP in 1 week to monitor resolution. Education on ureterolithiasis will be provided. Patient has diabetes mellitus type 2, [id number]. Patient may continue with his home medication-metformin 1000 mg 1 pill twice daily. Recommendation is to maintain blood sugars less than 140 fasting and less than 200 after meals. Further adjustment in his medication can be done by his PCP. Patient has hypertension. Patient will continue with his home medication of losartan/hydrochlorothiazide 50/12.5 mg 1 pill daily. Recommendation is to maintain blood pressures less 150/80. Further adjustment can be done by his PCP. Patient has hyperlipidemia. Patient will continue with his medication-Zocor 50 mg once daily. Patient has GERD. Patient will continue with his medication-Protonix 40 mg 1 pill once daily. Patient with osteoarthritis. Will recommend to discontinue Mobic due to acute renal failure. Patient may use Tylenol as needed for pain. A limited supply of medication or pain will be provided. Recommend to recheck lab-BMP in 1 week. If resolved patient may return in using Mobic for pain. Stool softener-docusate 100 mg daily will be provided. Vital Signs/Physical Exam: Temp Pulse Resp BP Pulse Ox 97.6 F 84 84 H 119/65 94 01/08/18 08:00 01/08/18 09:50 01/08/18 08:00 01/08/18 09:50 01/08/18 08:00 General: Alert, In no apparent distress, Oriented x3, Cooperative HEENT: Atraumatic Neck: Supple Respiratory: Clear to auscultation bilaterally, Normal air movement Cardiovascular: Normal pulses, Regular rate/rhythm Gastrointestinal: Normal bowel sounds, Soft and benign, Non-distended, No tenderness, No masses, No rebound, No guarding Musculoskeletal: No erythema, No tenderness, No warmth Integumentary: No tenderness/swelling, No erythema, No warmth, No cyanosis Neurological: Normal speech, Normal strength at 5/5 x4 extr, Normal tone, Normal affect Laboratory Data at Discharge: WBC 10.4 K/uL (4.3-10.9) D 01/08/18 04:37 Hgb 13.5 g/dL (13.6-17.9) L 01/08/18 04:37 Hct 39.0 % (39.6-49.0) L 01/08/18 04:37 Plt Count 128 K/uL (152-406) L 01/08/18 04:37 Sodium 138 mmol/L (136-145) 01/08/18 10:37 Potassium 4.1 mmol/L (3.5-5.1) 01/08/18 10:37 BUN 33 mg/dL (7-18) H 01/08/18 10:37 Creatinine 1.90 mg/dL (0.55-1.3) H 01/08/18 10:37 Glucose 256 mg/dL (74-106) H 01/08/18 10:37 Uric Acid 5.3 mg/dL (3.5-7.2) 01/07/18 21:52 Magnesium 2.5 mg/dL (1.8-2.4) H 01/08/18 04:37 Total Bilirubin 0.9 mg/dL (0.2-1.0) 01/07/18 12:20 AST 18 U/L (15-37) 01/07/18 12:20 ALT 25 U/L (12-78) 01/07/18 12:20 Alkaline Phosphatase 88 U/L (45-117) 01/07/18 12:20 Lipase 163 U/L (73-393) 01/07/18 12:20 Home Medications: Aspirin [Aspir-Low] 1 tab PO DAILY 01/07/18 Glucosam/Chondroitin/Diet Cb25 [Trepadone Capsule] 1 cap PO BID 01/07/18 Losartan/Hydrochlorothiazide [Losartan-Hctz 50-12.5 mg Tab] 1 tab PO DAILY 01/07 Metformin HCl 1 tab PO BID 01/07/18 Multivit-Min/FA/Lycopen/Lutein [Centrum Silver Men Tablet] 1 tab PO DAILY Pantoprazole [Protonix Tab*] 40 mg PO DAILY 01/07/18 Simvastatin 40 mg PO DAILY 01/07/18 Ciprofloxacin HCl [Cipro 250 MG Tablet*] 250 mg PO BID #14 tab 01/08/18 Docusate [Colace Cap*] 100 mg PO DAILY #30 cap 01/08/18 Tramadol HCl [Ultram] 50 mg PO TID PRN #20 tablet 01/08/18 New Medications: Ciprofloxacin HCl [Cipro 250 MG Tablet*] 250 mg PO BID #14 tab Docusate [Colace Cap*] 100 mg PO DAILY #30 cap Tramadol HCl [Ultram] 50 mg PO TID PRN #20 tablet PRN Reason: Pain Patient Discharge Instructions: 1. Patient will need a follow up with his PCP within 1 week to follow up this hospitalization. 2. Patient presented with right flank pain. Patient found to have right mid ureter calculus with right hydronephrosis, hydroureter and UTI complicated with acute renal failure. Patient evaluated in the emergency room. Patient seen by urology. Urological intervention was required. Cystoscopy, right retrograde pyelogram and placement of 6 [place] by 28 cm double-J stent was placed. Patient tolerated procedure well. No complication identified. Repeat CT scan showed no stone and resolution of hydronephrosis. At discharge patient without any significant pain and able to urinate. At discharge renal function also slightly improved. At discharge patient will continue with Cipro 250 mg 1 pill twice daily for 7 days. Patient will be provided a limited supply of tramadol 50 mg 1 pill 3 times a day as needed for pain. At discharge patient will follow up with urology later this week to follow up this hospitalization. Stent will need to be removed in the near future. Recommendation to recheck lab-BMP in 1 week to monitor resolution. Education on ureterolithiasis will be provided. 3. Patient has diabetes mellitus type 2, [id number]. Patient may continue with his home medication-metformin 1000 mg 1 pill twice daily. Recommendation is to maintain blood sugars less than 140 fasting and less than 200 after meals. Further adjustment in his medication can be done by his PCP. 4. Patient has hypertension. Patient will continue with his home medication of losartan/hydrochlorothiazide 50/12.5 mg 1 pill daily. Recommendation is to maintain blood pressures less 150/80. Further adjustment can be done by his PCP. 5. Patient has hyperlipidemia. Patient will continue with his medication -Zocor 50 mg once daily. 6. Patient has GERD. Patient will continue with his medication-Protonix 40 mg 1 pill once daily. 7. Patient with osteoarthritis. Will recommend to discontinue Mobic due to acute renal failure. Patient may use Tylenol as needed for pain. A limited supply of medication or pain will be provided. Recommend to recheck lab-BMP in 1 week. If resolved patient may return in using Mobic for pain. 8. Stool softener-docusate 100 mg daily will be provided. Diet: ADA Activity: Ad aric Time spent managing pt's care (in minutes): 55
[2018-01-08] MEDS ORDERED: CEFTRIAXONE/SWI 1gm 1 GM/10 ML SYR IV SCH (17:00)
== END 2018-01-08 14:11 | disposition home or self-care (01) ==
LOC: ER 11:42 → ERHOLD 15:51 → 2ND 19:56
PROVIDERS: ADMIT Family Medicine; ATTEND Family Medicine
PROC: 0T768DZ Dilation of Right Ureter with Intraluminal Device, Via Natural or Artificial Opening Endoscopic (ICD-10-PCS; principal; 2018-01-07 18:45)
DX: N13.2 Hydronephrosis with renal and ureteral calculous obstruction (principal); N39.0 Urinary tract infection, site not specified; N17.9 Acute kidney failure, unspecified; K40.90 Unilateral inguinal hernia, without obstruction or gangrene, not specified as recurrent; E11.9 Type 2 diabetes mellitus without complications; I10 Essential (primary) hypertension; E78.5 Hyperlipidemia, unspecified; K21.9 Gastro-esophageal reflux disease without esophagitis; M19.90 Unspecified osteoarthritis, unspecified site
CPT/HCPCS: 36415 ×2; 51610; 52332; 74018; 74176 ×2; 74450; 76377; 80048 ×3; 80076; 82962 ×4; 83605; 83690; 83735; 84550; 85025 ×2; 87040 ×2; 87077 ×3; 87086; 87088; 87186 ×3; 87205 ×4; 96361; 96365; 96366; 99285; G0378 ×2; J0696 ×2; J1100; J2405 ×2; J2704; J3010 ×2; J7030 ×2; Q9967; 81003; 81015

== ENCOUNTER 2021-05-18 14:04 | Inpatient (IN) | payer OTHER ==
--- NOTE | 2021-05-18 17:15 | RAD REPORT ---
EXAM DESCRIPTION: MRI - Tib Fib Left W/Wo Cont - 05/18/2021 5:05 pm CLINICAL HISTORY: SEE DX. Pain and swelling COMPARISON: No comparisons FINDINGS: Fluid and subcutaneous edema is seen in the pretibial soft tissues. [place] non enhancing s ubcutaneous lesions are present in the area of interest, measuring 20 x 11 in 16 x 10 mm. These may r epresent small hematomas. No underlying bone lesion is seen. No soft tissue mass. No fracture is evid ent. IMPRESSION: Subcutaneous edema and mild inflammatory changes are seen in the pretibial soft tissues. [place] lesions present in the region may represent hematomas although abscess not completely exclude d.
[2021-05-18] MEDS ORDERED: D10W 250 ML BAG IV PRN (17:55)
--- OUTSIDE RECORDS SUMMARY | 2021-05-18 17:55 | XMS REPORT | Continuity of Care Document ---
:1945 Author Organization [facility] t Address [address] [place] [address] Care Team Providers Name Role Phone Amilcar Mckinney MD Attending Clinician ENID MCKINNEY Attending Clinician Unavailable Ailin Garcia MD Attending Clinician ENID MCKINNYE Admitting Clinician Unavailable Payers Payer Name Policy Type Policy Number Effective Date Expiration Date S ource Problems Condition Condition Condition Status Onset Resolution Last Treating Co mments Source Name Details Category Date Date Treatment Clinician Date No known No known Disease [facility] active active College problems problems of Medicin e Allergies, Adverse Reactions, Alerts Allergy Allergy Status Severity Reaction(s) Onset Inactive Treating Comm ents Source Name Type Date Date Clinician NO KNOWN Allergy Active [facility] Social History Social Habit Start Date Stop Date Quantity Comments Source History [facility] Alcohol Std Drinks of Med icine History [facility] Alcohol Binge of Medicine History [facility] ge Alcohol Comment of Medici ne Exposure to Not sure [facility] e SARS-CoV-2 (event) of Med icine Alcohol intake 2021-04-06 2021-04-06 Current drinker [facility] [place] 00:00:00 00:00:00 of alcohol of Medicine (finding) History [facility] 2019-03-07 2019-03-07 5 [facility] ge Alcohol Frequency 00:00:00 00:00:00 of Medi cine Tobacco use and 2019-03-07 2019-03-07 Smokeless tobacco Ba or College exposure 00:00:00 00:00:00 non-user of Medicine Sex Ass[birth year] At [birth year] [facility] llege 00:00:00 00:00:00 of Medicine Smoking Status Start Date Stop Date Source Ex-smoker 2019-03-07 00:00:00 2019-03-07 00:00:00 [facility] Tammy vigil of Medicine Medications Ordered Filled Start Stop Current Ordering Indication Dosage Frequency Signature Comments Components Source Medication Medication Date Date Medication? Clinician (SIG) Name Name glucosamine Yes 1{tbl} Take 1 [facility] -chondroiti 2-28 Tablet by Col wright n 500-400 08:03: mouth. of MG tablet 04 Medicin e Multiple Yes Take by [facility] 2-28 mouth. Colleg e nerals 08:02: of (CENTRUM 07 Medicin SILVER e ULTRA MENS OR) Glucosamine Yes Take by [facility] 500 MG CAPS 2- mouth. Colleg e 08:02: of 07 Medicin e tadalafil Yes 5mg Take 1 [facility] (CIALIS) 5 2- Tablet by Moj[place] ege MG tablet 00:00: mouth of 00 daily. Medicin e glipiZIDE 2020-02 Yes [facility] (GLUCOTROL) 2-16 College 2.5 MG CR 00:00: of tablet 00 Medicin e Tamsulosin 2020-02 Yes [facility] HCl 0.4 MG 0-01 College CAPS 00:00: of 00 Medicin e Multiple Yes Take by [place] [facility] 2-10 mouth. Colleg e nerals 19:18: of (CENTRUM 10 Medicin SILVER e ULTRA MENS OR) Glucosamine Yes Take by [facility] 500 MG CAPS 2-10 mouth. Colleg e 19:18: of 10 Medicin e Multiple Yes Take by [facility] 1- mouth. Colleg e nerals 21:00: of (CENTRUM 36 Medicin SILVER e ULTRA MENS OR) Glucosamine Yes Take by [facility] 500 MG CAPS - mouth. Colleg e 21:00: of 36 Medicin e pantoprazol 2019-0 Yes [facility] 1-20 College (PROTONIX) 00:00: of 40 MG 00 Medicin tablet e pantoprazol 2019-0 Yes [facility] 1-20 College (PROTONIX) 00:00: of 40 MG 00 Medicin tablet e pantoprazol 2019- Yes [facility] e 1-20 College (PROTONIX) 00:00: of 40 MG 00 Medicin tablet e FARXIGA 10 2020-0 Yes [facility] TABS 1-13 College 00:00: of 00 Medicin e FARXIGA 10 2020-0 Yes [facility] MG TABS 1-13 College 00:00: of 00 Medicin e FARXIGA 10 2020-0 Yes [facility] MG TABS 1-13 College 00:00: of 00 Medicin e metformin 2020-0 Yes [facility] (GLUCOPHAGE 1-08 College ) 1000 MG 00:00: of tablet 00 Medicin e amlodipine 2020-0 Yes [facility] (NORVASC) 1-08 College 10 MG 00:00: of tablet 00 Medicin e simvastatin 2020-0 Yes [facility] (ZOCOR) 40 1-08 College MG tablet 00:00: of 00 Medicin e metformin 2020-0 Yes [facility] (GLUCOPHAGE 1-08 College ) 1000 MG 00:00: of tablet 00 Medicin e amlodipine 2020-0 Yes [facility] (NORVASC) 1-08 College 10 MG 00:00: of tablet 00 Medicin e simvastatin 2020-0 Yes [facility] (ZOCOR) 40 1-08 College MG tablet 00:00: of 00 Medicin e metformin 2020-0 Yes [facility] (GLUCOPHAGE 1-08 College ) 1000 MG 00:00: of tablet 00 Medicin e amlodipine 2020-0 Yes [facility] (NORVASC) 1-08 College 10 MG 00:00: of tablet 00 Medicin e simvastatin 2020-0 Yes [facility] (ZOCOR) 40 1-08 College MG tablet 00:00: of 00 Medicin e losartan-hy 2018-02 Yes TAKE 1 [facility] drochloroth 2-31 TABLET BY Col lege iazide 00:00: MOUTH of (HYZAAR) 00 EVERY DAY Medici n 50-12.5 MG e per tablet losartan-hy 2018-02 Yes TAKE 1 [facility] drochloroth 2-31 TABLET BY Col lege iazide 00:00: MOUTH of (HYZAAR) 00 EVERY DAY Medici n 50-12.5 MG e per tablet losartan-hy 2018-02 Yes TAKE 1 [facility] drochloroth 2-31 TABLET BY Col lege iazide 00:00: MOUTH of (HYZAAR) 00 EVERY DAY Medici n 50-12.5 MG e per tablet Vital Signs Vital Name Observation Time Observation Value Comments Source Systolic blood 2021-04-06 14:03:00 150 mm[Hg] [facility] pressure Medicine Diastolic blood 2021-04-06 14:03:00 82 mm[Hg] [facility] pressure Medicine Heart rate 2021-04-06 14:03:00 91 /min [facility] ollege of Medicine Body height 2021-04-06 14:03:00 181.6 cm [facility] ollege of [facility] Body weight 2021-04-06 14:03:00 90.719 kg [facility] ollege of [facility] BMI 2021-04-06 14:03:00 [facility] Systolic blood 2019-03-19 19:16:00 138 mm[Hg] [facility] of pressure Medicine Diastolic blood 2019-03-19 19:16:00 75 mm[Hg] [facility] Medicine Heart rate 2019-03-19 19:16:00 78 /min [facility] ol[facility] of Medicine Respiratory rate 2019-03-19 19:16:00 16 /min [facility] Body height 2019-03-19 19:16:00 180.3 cm [facility] ollege of [facility] Body weight 2019-03-19 19:16:00 94.802 kg [facility] BMI 2019-03-19 19:16:00 29.15 kg/m2 [facility] Oxygen saturation in 2019-03-19 19:16:00 96 /min [facility] Arterial blood by [facility] Pulse oximetry Systolic blood 2019-03-19 19:16:00 138 mm[Hg] [facility] pressure Medicine Diastolic blood 2019-03-19 19:16:00 75 mm[Hg] [facility] pressure Medicine Heart rate 2019-03-19 19:16:00 78 /min [facility] ol[facility] of Medicine Respiratory rate 2019-03-19 19:16:00 16 /min [facility] Body height 2019-03-19 19:16:00 180.3 cm [facility] ol[facility] of Medicine Body weight 2019-03-19 19:16:00 94.802 kg [facility] BMI 2019-03-19 19:16:00 29.15 kg/m2 [facility] Oxygen saturation in 2019-03-19 19:16:00 96 /min [facility] Arterial blood by [facility] Pulse oximetry Systolic blood 2019-03-07 20:50:00 159 mm[Hg] [facility] pressure Medicine Diastolic blood 2019-03-07 20:50:00 81 mm[Hg] [facility] Medicine Heart rate 2019-03-07 20:50:00 84 /min [facility] Body temperature 2019-03-07 20:50:00 36.72 [facility] Body height 2019-03-07 20:50:00 180.3 cm [facility] Body weight 2019-03-07 20:50:00 95.255 kg [facility] BMI 2019-03-07 20:50:00 29.29 kg/m2 [facility] Systolic blood 2019-03-07 20:50:00 159 mm[Hg] [facility] Medicine Diastolic blood 2019-03-07 20:50:00 81 mm[Hg] [facility] Medicine Heart rate 2019-03-07 20:50:00 84 /min [facility] Body temperature 2019-03-07 20:50:00 36.72 [facility] Body height 2019-03-07 20:50:00 180.3 cm [facility] Body weight 2019-03-07 20:50:00 95.255 kg [facility] BMI 2019-03-07 20:50:00 29.29 kg/m2 [facility] Procedures Procedure Date / Time Performing Clinician Source Performed ELECTROCARDIOGRAM COMPLETE 2019-03-19 19:26:25 Eamon Garcia [facility] POCT URINALYSIS DIPSTICK 2019-03-07 00:00:00 Elia Mckinney [facility] Plan of Care Planned Activity Planned Date Details Comments Source Future Scheduled 2022-04-06 CT ABDOMEN PELVIS W WO Expected: B [facility] Test 00:00:00 CONTRAST [code = 04/06/2022, Medicine 38612-0] Expires: 04/06/2022 Future Scheduled 2022-04-06 XR CHEST PA AND LATERAL Expected: [facility] Test 00:00:00 [code = 75376-8] 04/06/2022, of Medicine Expires: 04/06/2022 Future Scheduled 2021-04-06 Hepatitis C screening [facility] Test 08:33:02 (procedure) [code = of Medic ine 725121188] Future Scheduled 2021-04-06 ZOSTER VACCINE (1 of 2) [facility] College Test 08:33:02 [code = ZOSTER VACCINE of Me dicine (1 of 2)] Future Scheduled 2021-04-06 FALL SCREEN [code = FALL [facility] Test 08:33:02 SCREEN] of Medicine Future Scheduled 2021-04-06 Pneumococcal 65+ (1 of 1 [facility] Test 08:33:02 - PPSV23) [code = of Medicin e Pneumococcal 65+ (1 of 1 - PPSV23)] Future Scheduled 2021-04-06 MEDICARE AWV (Initial) B [facility] College Test 08:33:02 [code = MEDICARE AWV of Medi cine (Initial)] Future Scheduled 2021-04-06 FLU VACCINE > 6 MONTHS [facility] College Test 08:33:02 [code = FLU VACCINE > 6 of M edicine MONTHS] Future Scheduled 2021-04-06 Screening for malignant [facility] Test 08:33:02 neoplasm of colon of Medicin e (procedure) [code = 677066170] Future Scheduled 2021-04-06 COVID-19 Vaccine (1) [facility] Test 08:33:02 [code = COVID-19 Vaccine of Medicine (1)] Future Scheduled 2021-04-06 TETANUS SHOT (ADULT) [facility] Test 08:33:02 [code = TETANUS SHOT of Medi cine (ADULT)] Future Scheduled 2021-04-06 BMI FOLLOW UP PLAN [code [facility] Test 08:33:02 = BMI FOLLOW UP PLAN] of Med icine Future Scheduled FALL SCREEN [code = FALL [facility] Test SCREEN] of Medicine Future Scheduled PNEUMOVAX >=65 (PPSV23) [facility] Test [code = PNEUMOVAX >=65 of Me dicine (PPSV23)] Future Scheduled PREVNAR >= 65 (PCV13) [facility] College Test [code = PREVNAR >= 65 of Med icine (PCV13)] Future Scheduled MEDICARE AWV (Initial) [facility] [employer] Test [code = MEDICARE AWV of Medi cine (Initial)] Future Scheduled FLU VACCINE > 6 MONTHS [employer] Test [code = FLU VACCINE > 6 of M edicine MONTHS] Future Scheduled ELECTROCARDIOGRAM [facility] Test COMPLETE [code = 52153] of M edicine Future Scheduled COLON CANCER SCREENING: [facility] Test COLONOSCOPY [code = of Medic ine COLON CANCER SCREENING: COLONOSCOPY] Future Scheduled TETANUS SHOT (ADULT) [employer] Test [code = TETANUS SHOT of Medi cine (ADULT)] Future Scheduled BMI FOLLOW UP PLAN [code [facility] Test = BMI FOLLOW UP PLAN] of Med icine Future Scheduled HEPATITIS C SCREENING [facility] Test [code = HEPATITIS C of Medic ine SCREENING] Future Scheduled AAA Screen [code = AAA [facility] Test Screen] of Medicine Future Scheduled FALL SCREEN [code = FALL [facility] Test SCREEN] of Medicine Future Scheduled PNEUMOVAX >=65 (PPSV23) [facility] Test [code = PNEUMOVAX >=65 of Me dicine (PPSV23)] Future Scheduled PREVNAR >= 65 (PCV13) [employer] [facility] Test [code = PREVNAR >= 65 of Med icine (PCV13)] Future Scheduled MEDICARE AWV (Initial) [facility] [employer] Test [code = MEDICARE AWV of Medi cine (Initial)] Future Scheduled FLU VACCINE > 6 MONTHS [employer] Test [code = FLU VACCINE > 6 of M edicine MONTHS] Future Scheduled COLON CANCER SCREENING: [facility] Test COLONOSCOPY [code = of Medic ine COLON CANCER SCREENING: COLONOSCOPY] Future Scheduled TETANUS SHOT (ADULT) [employer] [employer] Test [code = TETANUS SHOT of Medi cine (ADULT)] Future Scheduled BMI FOLLOW UP PLAN [code [facility] Test = BMI FOLLOW UP PLAN] of Med icine Future Scheduled HEPATITIS C SCREENING [employer] [facility] [employer] Test [code = HEPATITIS C of Medic ine SCREENING] Future Scheduled AAA Screen [code = AAA [facility] Test Screen] of Medicine Future Scheduled XR CHEST PA AND LATERAL 1 Occurrences [facility] College Test [code = 67284-9] starting of Medicine 03/07/2019 until 10/06/2019 Encounters Start End Encounter Admission Attending Care Care Encounter Source Date/Time Date/Time Type Type Clinicians Facility Department ID 2021-04-06 2021-04-06 Office Link, [facility] [id number] [facility] 08:15:00 08:30:00 Visit Elia Fitzgerald AMBULATOR [id number] College Y 0.2.7.2.686 of [id number] [facility] justina 300 e 2019-04-02 2019-04-02 Outpatient [facility] [id number] [id number] [facility] 00:00:00 00:00:00 [id number] 2019-04-02 2019-04-02 [id number] [facility] 00:00:00 00:00:00 ELIA 2019-03-19 2019-03-19 Office Radha [facility] [id number] [facility] 12:46:46 13:26:46 Visit Eamon Parisi AMBULATOR 350.1.13.21 College Y 0.2.7.2.686 of [id number] Medi justina 375 e 2019-03-19 2019-03-19 Office Radha [facility] [id number] 12:46:46 13:26:46 Visit Eamon Parisi AMBULATOR 350.1.13.21 Y 0.2.7.2.686 [id number] 2019-03-07 2019-03-07 Office Amanda [facility] [id number] [facility] 14:02:52 16:51:39 Visit Elia Fitzgerald AMBULATOR 350.1.13.21 College Y 0.2.7.2.686 of [id number] [facility] justina 300 e 2019-03-07 2019-03-07 Office [facility] [id number] 14:02:52 16:51:39 Visit Elia Fitzgerald AMBULATOR 350.1.13.21 Y 0.2.7.2.686 [id number] Results Test Description Test Time Test Comments Results Result [facility] e Comments TISSUE EXAM 2019-04-09 Surgical Pathology 16:03:00 Report Case: [id number] Authorizing Provider: Elia Mckinney MD Collected: 04/04/2019 1208 Ordering Location: 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 - WHO/ISUP GRADE 3/4 - NO SARCOMATOID OR RHABDOID FEATURES SEEN - NO NECROSIS PRESENT - NO VASCULAR INVASION NOTED - TUMOR EXTENDS TO THE PARENCHYMAL TISSUE EDGE AND THE RENAL CAPSULE, FOCALLY (SEE COMMENT) - NO TUMOR IN THE PERINEPHRIC FAT - SEE SYNOPTIC REPORT Signing Pathologist Direct Phone Line: [phone] ally signed by Maria L Alvarez MD on 04/09/2019 at 4:03 PMIntraoperative correlation is recommendedKIDNEY: Nephrectomy (Kidney Res - All Specimens)SPECIMEN Procedure: Partial nephrectomy Specimen Laterality: Right TUMOR Tumor Site: Upper pole Tumor Site: Middle Histologic Type: Clear cell renal cell carcinoma Histologic Grade (WHO / ISUP Grade): G3: Nucleoli conspicuous and eosinophilic at 100x magnification Tumor Size: Greatest dimension in Centimeters (cm): 3.5 Centimeters (cm) Additional Dimension in Centimeters (cm): 3 Centimeters (cm) Additional Dimension in Centimeters (cm): 2.5 Centimeters (cm) Tumor Focality: Unifocal Tumor Extent: Tumor Extension: Tumor limited to kidney Accessory Findings: Sarcomatoid Features: Not identified Rhabdoid Features: Not identified Tumor Necrosis: Not identified Lymphovascular Invasion: Not identified MARGINS Margins: Involved by invasive carcinoma Margin(s): Renal parenchymal margin (partial nephrectomy only) LYMPH NODES Regional Lymph Nodes: No lymph nodes submitted or found PATHOLOGIC STAGE CLASSIFICATION (pTNM, AJCC 8th Edition) TNM Descriptors: Not applicable Primary Tumor (pT): pT1a Regional Lymph Nodes (pN): pNX ADDITIONAL FINDINGS Pathologic Findings in Nonneoplastic Kidney: Insufficient tissue Comment(s) Comment(s): Tumor abuts the parenchymal tissue edge. Intraoperative correlation is recommended to determine the status of the margin [id number] renal mass A.Right renal mass Specimen A received in formalin labeled with the patient's name, accession number and "right renal mass" is a 40.6 gm, 4.5 x 3.5 x 3.0 cm partial nephrectomy specimen with a 5.5 x 4.2 x 1.2 cm portion of adherent perirenal adipose tissue. The cortical surface is smallwood-red and smooth.The specimen is serially sectioned to reveal a yellow-orange, variegated, focally cystic mass measuring 3.5 x 3.0 x 2.5 cm. The mass abuts both the inked resection margin and the inked capsular surface, coming within less than 0.1 cm. A scant amount of red-brown kidney parenchyma is noted. The specimen is submitted in its entirety. Sectioning through the loosely adherent perinephric adipose tissue reveals a smallwood-yellow and lobulated cut surface. [employer]ch[employer] sections are submitted.Ink code: Resection margin-blue, capsular surface-black.Section code: A1, one end, perpendicular; A2-A16, remainder of specimen, sequentially submitted; A17-A19, opposing end, perpendicularly sectioned; A20, perinephric adipose tissue. LY/ewPERFORMED BASIC METABOLIC PANEL 2019-04-06 06:54:00 Test Item Value Reference Range Interpretation Comme nts SODIUM (BEAKER) (test code 137 meq/L 136-145 = 381) POTASSIUM (BEAKER) (test 3.9 meq/L 3.5-5.1 code = 379) CHLORIDE (BEAKER) (test 109 meq/L 98-107 H code = 382) CO2 (BEAKER) (test code = 22 meq/L 22-29 355) BLOOD UREA NITROGEN 11 mg/dL 7-21 (BEAKER) (test code = 354) CREATININE (BEAKER) (test 0.89 mg/dL 0.57-1.25 code = 358) GLUCOSE RANDOM (BEAKER) 128 mg/dL 70-105 H (test code = 652) CALCIUM (BEAKER) (test code 8.6 mg/dL 8.4-10.2 = 697) EGFR (BEAKER) (test code = 84 mL/min/1.73 sq m ESTIMATED GFR IS NOT 1092) ACCURATE CRE ATININE CLEARANCE IN [place] EDICTING GLOMERULAR FILT RATION RATE. ESTIMATED GFR IS NOT APPLICABLE FOR DIALYSIS PATIENTS. Screw Machine Operator ID - PIAYA LCBC W/PLT COUNT & AUTO [id number] 06:17:00 Test Item Value Reference Range Interpretation Comments WHITE BLOOD CELL COUNT (BEAKER) 9.8 K/ L 3.5-10.5 (test code = 775) RED BLOOD CELL COUNT (BEAKER) 4.17 M/ L 4.63-6.08 L (test code = 761) HEMOGLOBIN (BEAKER) (test code = 12.9 GM/DL 13.7-17.5 L 410) HEMATOCRIT (BEAKER) (test code = 39.0 % 40.1-51.0 L 411) MEAN CORPUSCULAR VOLUME (BEAKER) 93.5 fL 79.0-92.2 H (test code = 753) MEAN CORPUSCULAR HEMOGLOBIN 30.9 pg 25.7-32.2 (BEAKER) (test code = 751) MEAN CORPUSCULAR HEMOGLOBIN CONC 33.1 GM/DL 32.3-36.5 (BEAKER) (test code = 752) RED CELL DISTRIBUTION WIDTH 12.7 % 11.6-14.4 (BEAKER) (test code = 412) PLATELET COUNT (BEAKER) (test 123 K/CU MM 150-450 L code = 756) MEAN PLATELET VOLUME (BEAKER) 11.4 fL 9.4-12.4 (test code = 754) NUCLEATED RED BLOOD CELLS 0 /100 WBC 0-0 (BEAKER) (test code = 413) NEUTROPHILS RELATIVE PERCENT 77 % (BEAKER) (test code = 429) LYMPHOCYTES RELATIVE PERCENT 14 % (BEAKER) (test code = 430) MONOCYTES RELATIVE PERCENT 7 % (BEAKER) (test code = 431) EOSINOPHILS RELATIVE PERCENT 1 % (BEAKER) (test code = 432) BASOPHILS RELATIVE PERCENT 0 % (BEAKER) (test code = 437) NEUTROPHILS ABSOLUTE COUNT 7.53 K/ L 1.78-5.38 H (BEAKER) (test code = 670) LYMPHOCYTES ABSOLUTE COUNT 1.39 K/ L 1.32-3.57 (BEAKER) (test code = 414) MONOCYTES ABSOLUTE COUNT (BEAKER) 0.72 K/ L 0.30-0.82 (test code = 415) EOSINOPHILS ABSOLUTE COUNT 0.08 K/ L 0.04-0.54 (BEAKER) (test code = 416) BASOPHILS ABSOLUTE COUNT (BEAKER) 0.04 K/ L 0.01-0.08 (test code = 417) IMMATURE GRANULOCYTES-RELATIVE 0 % 0-1 PERCENT (BEAKER) (test code = 2801) POCT-GLUCOSE [id number] 18:34:00 Test Item Value Reference Range Interpretation Comments POC-GLUCOSE METER 155 mg/dL 70-110 H : TESTED A T [facility] 6720 (BEAKER) (test code [facility], = 1538) 69690: Screw Machine Operator/Techni mindy ID = [id number] for JAIM RADHA SHERIFFLUPE POCT-GLUCOSE [id number] 13:15:00 Test Item Value Reference Range Interpretation Comments POC-GLUCOSE METER 152 mg/dL 70-110 H : TESTED A T [facility] 6720 (BEAKER) (test code [facility], = 1538) 02607: Screw Machine Operator/Techni mindy ID = [id number] for JAIM E TATA, VALERIY BASIC METABOLIC [id number] 06:55:00 Test Item Value Reference Range Interpretation Comments SODIUM (BEAKER) 137 meq/L 136-145 (test code = 381) POTASSIUM (BEAKER) 3.8 meq/L 3.5-5.1 (test code = 379) CHLORIDE (BEAKER) 109 meq/L 98-107 H (test code = 382) CO2 (BEAKER) (test 22 meq/L 22-29 code = 355) BLOOD UREA NITROGEN 13 mg/dL 7-21 (BEAKER) (test code = 354) CREATININE (BEAKER) 1.10 mg/dL 0.57-1.25 (test code = 358) GLUCOSE RANDOM 122 mg/dL 70-105 H (BEAKER) (test code = 652) CALCIUM (BEAKER) 8.2 mg/dL 8.4-10.2 L (test code = 697) EGFR (BEAKER) (test 66 mL/min/1.73 ESTIMA GREGORY GFR IS code = 1092) sq m NOT ACCURATE CREATININE CLEARANCE IN PREDICTING GLOMERULAR FILTRATION RATE . ESTIMATED GFR I S NOT APPLICABLE FOR DIALYSIS PATIEN TS. Screw Machine Operator ID - PIAYA LCBC W/PLT COUNT & AUTO [id number] 06:14:00 Test Item Value Reference Range Interpretation Comments WHITE BLOOD CELL COUNT (BEAKER) 8.6 K/ L 3.5-10.5 (test code = 775) RED BLOOD CELL COUNT (BEAKER) 3.80 M/ L 4.63-6.08 L (test code = 761) HEMOGLOBIN (BEAKER) (test code = 11.8 GM/DL 13.7-17.5 L 410) HEMATOCRIT (BEAKER) (test code = 35.9 % 40.1-51.0 L 411) MEAN CORPUSCULAR VOLUME (BEAKER) 94.5 fL 79.0-92.2 H (test code = 753) MEAN CORPUSCULAR HEMOGLOBIN 31.1 pg 25.7-32.2 (BEAKER) (test code = 751) MEAN CORPUSCULAR HEMOGLOBIN CONC 32.9 GM/DL 32.3-36.5 (BEAKER) (test code = 752) RED CELL DISTRIBUTION WIDTH 13.0 % 11.6-14.4 (BEAKER) (test code = 412) PLATELET COUNT (BEAKER) (test 121 K/CU MM 150-450 L code = 756) MEAN PLATELET VOLUME (BEAKER) 11.3 fL 9.4-12.4 (test code = 754) NUCLEATED RED BLOOD CELLS 0 /100 WBC 0-0 (BEAKER) (test code = 413) NEUTROPHILS RELATIVE PERCENT 71 % (BEAKER) (test code = 429) LYMPHOCYTES RELATIVE PERCENT 19 % (BEAKER) (test code = 430) MONOCYTES RELATIVE PERCENT 8 % (BEAKER) (test code = 431) EOSINOPHILS RELATIVE PERCENT 1 % (BEAKER) (test code = 432) BASOPHILS RELATIVE PERCENT 1 % (BEAKER) (test code = 437) NEUTROPHILS ABSOLUTE COUNT 6.15 K/ L 1.78-5.38 H (BEAKER) (test code = 670) LYMPHOCYTES ABSOLUTE COUNT 1.66 K/ L 1.32-3.57 (BEAKER) (test code = 414) MONOCYTES ABSOLUTE COUNT (BEAKER) 0.73 K/ L 0.30-0.82 (test code = 415) EOSINOPHILS ABSOLUTE COUNT 0.04 K/ L 0.04-0.54 (BEAKER) (test code = 416) BASOPHILS ABSOLUTE COUNT (BEAKER) 0.04 K/ L 0.01-0.08 (test code = 417) IMMATURE GRANULOCYTES-RELATIVE 0 % 0-1 PERCENT (BEAKER) (test code = 2801) POCT-GLUCOSE [id number] 22:33:00 Test Item Value Reference Range Interpretation Comments POC-GLUCOSE METER 151 mg/dL 70-110 H : TESTED Serg T [facility] 6720 (BEAKER) (test code = [place], 1538) 18056: Screw Machine Operator/Techni mindy ID = [id number] for ERICK FARHAN YEE BASIC METABOLIC [id number] 14:02:00 Test Item Value Reference Range Interpretation Comments SODIUM (BEAKER) 137 meq/L 136-145 (test code = 381) POTASSIUM (BEAKER) 4.2 meq/L 3.5-5.1 (test code = 379) CHLORIDE (BEAKER) 108 meq/L 98-107 H (test code = 382) CO2 (BEAKER) (test 21 meq/L 22-29 L code = 355) BLOOD UREA NITROGEN 16 mg/dL 7-21 (BEAKER) (test code = 354) CREATININE (BEAKER) 1.18 mg/dL 0.57-1.25 (test code = 358) GLUCOSE RANDOM 221 mg/dL 70-105 H (BEAKER) (test code = 652) CALCIUM (BEAKER) 8.3 mg/dL 8.4-10.2 L (test code = 697) EGFR (BEAKER) (test 61 mL/min/1.73 ESTIMA GREGORY GFR IS code = 1092) sq m NOT ACCURATE CREATININE CLEARANCE IN PREDICTING GLOMERULAR FILTRATION RATE . ESTIMATED GFR I S NOT APPLICABLE FOR DIALYSIS PATIEN TS. Screw Machine Operator ID - [id number] AND [id number] 13:39:00 Test Item Value Reference Range Interpretation Comments HEMOGLOBIN (BEAKER) (test code = 13.1 GM/DL 13.7-17.5 L 410) HEMATOCRIT (BEAKER) (test code = 39.3 % 40.1-51.0 L 411) Screw Machine Operator ID - [id number] 07:06:00 Test Item Value Reference Range Interpretation Comments POC-GLUCOSE METER 157 mg/dL 70-110 H : TESTED A T [facility] 6720 (BEAKER) (test code = G[place], 1538) [address]: Screw Machine Operator/Techni mindy ID = [id number] for BR MOOKIE, RON RAD, CHEST, 2 [id number] 09:18:00Reason for Exam:->renal massFINAL REPORT CHEST RADIOGRAPH - 2 VIEWS INDICATION: Renal mass. COMPARISON: None FINDINGS:LINES: None LUNGS: The lungs are moderately inflated. A 5 mm nodular opacity in overliesthe left lower lung. No evidence of pneumonia or pulmonary edema. PLEURA: No evidence of pleural effusion or pneumothorax. HEART AND MEDIASTINUM: The cardiomediastinal silhouette is unremarkable. BONES: No acute osseous abnormality. UPPER ABDOMEN: No evidence of free intraperitoneal air. IMPRESSION:No acute radiographic abnormality. A 5 mm nodular opacity overlies the left lower lung, which may represent vessel versus pulmonary nodule. If there is clinical concern for malignancy, a chest CT is r ecommended for evaluation. Signed: Elroy Rowe MDReport Verified Date/Time: 03/09/2019 09:18:29 Reading Location: [facility] Reading Room [address] [place] [address] POCT URINALYSIS [id number] 00:00:00 Test Item Value Reference Range Interpretation Comments COLOR UA (test code = 5778-6) Light Yellow YELLOW/STRAW CLARITY UA (test code = 15611-7) Clear CLEAR GLUCOSE UA (test code = 5792-7) 3+ NEGATIVE BILIRUBIN UA (test code = Negative NEGATIVE 5770-3) KETONES UA (test code = 86788-2) Negative NEGATIVE SPECIFIC GRAVITY UA (test code = 1.005-1.035 5811-5) BLOOD UA (test code = 5794-3) Negative NEGATIVE PH UA (test code = 5803-2) 5-9 PROTEIN UA (test code = 5804-0) Trace NEGATIVE UROBILINOGEN UA (test code = 0.02 E.U/DL NORMAL MG/DL 5818-0) LEUKOCYTE ESTERASE UA (test code Negative NEGATIVE = 5799-2) NITRITE UA (test code = 5802-4) Negative NEGATIVE REDUCING SUBSTANCES URINE (test code = 43200-8) [facility]
[2021-05-18] MEDS ORDERED: GLUCAGON 1 MG/VIAL IM PRN (18:00)
[2021-05-18 18:54] LABS: Potassium 3.6 mmol/L (3.5-5.1)
[2021-05-18 18:55] LABS: Absolute Lymphocytes (CBC) 1.8 K/uL (0.7-4.9); Hematocrit 44.9 % (39.6-49.0); Lymphocytes % 11.9 % (15.3-44.8); MPV 9.1 fL (7.6-11.3); RBC Red Blood Cell Count 4.85 M/uL (4.33-5.43)
[2021-05-18] MEDS ORDERED: VANCOMYCIN 1 GM in NA CHLORIDE 0.9% 250 ML IVPB SCH ×2 (20:00→21:00)
[2021-05-18] MEDS ORDERED: NA CHLORIDE 0.9% 250 ML ONE (20:07)
[2021-05-18] MEDS ORDERED: VANCOMYCIN 1 GM/VIAL ONE (20:14)
[2021-05-18 20:52] VITALS: BMI 28.4
[2021-05-18] MEDS: INSULIN -REGULAR HUMAN 50 UNIT/0.5 ML ML SQ SCH (21:00)
[2021-05-18 23:07] LABS: Urine Appearance CLEAR (Clear); Urine Bilirubin NEGATIVE (Negative); Urine Blood NEGATIVE (Negative); Urine Color YELLOW (Yellow); Urine Glucose 3+ (Negative); Urine Protein NEGATIVE (Negative); Urine Specific Gravity 1.015 (1.005-1.030); Urine Urobilinogen 0.2 mg/dL (0.2-1.0); Urine pH 5.5 (5.0-7.0)
[2021-05-18] MEDS ORDERED: NA CHLORIDE 0.9% 100 ML ONE (23:14)
[2021-05-18] MEDS ORDERED: VANCOMYCIN 500 MG in NA CHLORIDE 0.9% 100 ML IVPB ONE (23:15)
[2021-05-18] MEDS ORDERED: VANCOMYCIN 500 MG/VIAL ONE (23:18)
[2021-05-18 23:22] LABS: Urine Bacteria <20 /HPF (NONE SEEN); Urine RBC <5 /HPF (NONE SEEN)
[2021-05-19] MEDS: INSULIN -REGULAR HUMAN 50 UNIT/0.5 ML ML SQ SCH ×4 (07:30→21:00)
[2021-05-19] MEDS: AMLODIPINE 10 MG TAB PO SCH (08:50)
[2021-05-19] MEDS: LOSARTAN/HCTZ 50-12.5 PO SCH (08:50)
--- NOTE | 2021-05-19 10:30 | RAD REPORT ---
EXAM DESCRIPTION: US - Extremity Venous Uni Ltd - 05/19/2021 10:25 am CLINICAL HISTORY: Pain, bruise COMPARISON: None. TECHNIQUE: Real-time sonographic evaluation of the left lower extremity deep venous system was perfo rmed. FINDINGS: Normal compressibility, flow augmentation, phasic flow and spontaneous flow is identified in the left lower extremity deep venous system. No intraluminal filling defects seen. IMPRESSION: No DVT in the left lower extremity.
[2021-05-19 10:42] VITALS: O2SAT 95
[2021-05-19] MEDS: VANCOMYCIN 1.5 GM in NA CHLORIDE 0.9% 500 ML IVPB SCH (14:08)
--- NOTE | 2021-05-19 17:39 | CON ---
Date of Consultation: 05/19/2021 Reason For Consultation: Left leg injury with cellulitis. History Of Present Illness: Ángel is a 76-year-old male who presented to the hospital with left lowe r extremity swelling and erythema. He reports a history of a crush injury to his left leg little ove r 1 week ago after his leg was crushed between a fence and a bull. He had subsequent swelling that p rogressively got worse as well as erythema. He failed oral antibiotics and was admitted yesterday fo r IV antibiotics. He has had an MRI of his left lower extremity, which demonstrates some soft tissue swelling as well as possible hematoma versus abscess. He reports improvement of his symptoms today after the IV antibiotics he has received thus far. Review of Systems: As above, otherwise negative. Past Medical History: Includes diabetes, hypertension, hyperlipidemia, GERD. Past Surgical History: Includes appendectomy. Family History: Noncontributory. Social History: Denies tobacco. Reports occasional alcohol use. Lives at home. Physical Examination: General: No apparent distress. HEENT: Normocephalic, atraumatic. Neck: Supple. Cardiovascular: Brisk cap refill to all digits. Chest: Nonlabored breathing. Abdomen: Nondistended. Psychiatric: Responds to exam. Musculoskeletal: Left lower extremity approximately a 10 cm curvilinear superficial laceration noted over the medial calf. Mild ecchymosis and minimal erythema noted. No erythema tracking proximal to the calf for distally into the ankle with mild soft tissue swelling over the medial calf as well as the pretibial area. No significant fluctuance noted. No pain with ankle dorsiflexion or plantar fle xion. Compartments are soft. Neurovascularly intact distally. X-rays: X-rays of the left tib-fib were negative for any fracture or dislocation. MRI of the left t ib-fib demonstrates soft tissue angioedema and hematoma from the inflammation within the medial calf. Assessment And Plan: Ángel is a 76-year-old male with a left tibial contusion with hematoma and cell ulitis. I discussed with the patient at length the diagnosis as well as treatment plan. There are n o signs of any abscess formation at this time. No significant surgical intervention indicated at thi s time. He may continue with IV antibiotics as his condition improves. He may be weightbearing as t olerated on the left lower extremity. He will again follow up in my clinic in 2 weeks if he continue s to have weakness or pain in his calf. CV/MODL Voice ID: [id number] Report ID: [id number]
[2021-05-19 18:35] LABS: Absolute Lymphocytes (CBC) 1.6 K/uL (0.7-4.9); Hematocrit 41.6 % (39.6-49.0); Lymphocytes % 26.8 % (15.3-44.8); MPV 9.2 fL (7.6-11.3); RBC Red Blood Cell Count 4.47 M/uL (4.33-5.43)
[2021-05-19 18:44] LABS: Potassium 3.5 mmol/L (3.5-5.1)
--- NOTE | 2021-05-19 20:25 | PN ---
The patient states he feels somewhat better today. It is not uncomfortable as long as he is lying do wn with his legs elevated. Still has some discomfort with walking and requires a walker for comfort sake. Erythema has improved. MRI did reveal lesions scattered, possible hematoma, unlikely abscess; however, we will obtain an Orthopedic consultation and do Doppler for DVT, but there was no evidence of that clinically. Continue on IV vancomycin for at least another 2 doses. HR/MODL Voice ID: [id number] Report ID: [id number]
--- NOTE | 2021-05-19 20:40 | HP ---
Date of Admission: 05/19/2021 Chief Complaint: Painful legs. History Of Present Illness: The patient was seen in the office a few days prior to this admission. He stated he had been pinned to the fence by a bull and he was quite uncomfortable afterwards. [facility], over the next few days, continued to walk on it and felt it was improving. However, the day prio r to admission, noticed it was slightly red in the distal aspect. He was seen in the office, diagnos ed with mild cellulitis of his knees, placed on Cipro. No evidence of any underlying problems includ ing good motion, weightbearing, and no evidence of calf tenderness. However, over the weekend, he st ated he got increasing pain in the anterior and lower portion of the leg with increasing redness. He was seen in the office with obvious cellulitis that progressed considerably, still no tenderness ove r the calf. There was some ecchymosis with some edema in the ankle and he was admitted for treatment with IV antibiotics for cellulitis. Past Medical History: The patient has been in generally good health for his age; however, he has NID DM, which has been under good control, on multiple p.o. drug regimens. Family History: Noncontributory. Social History: Nonsmoker. Physical Examination: General: The patient is an uncomfortable-appearing elderly male. Vital Signs: Stable vital signs. Head and Neck: Normocephalic. Pupils equal and reactive to light and accommodation. Fundi negative . Trachea midline. Thyroid not palpable. ENT negative. Chest: Clear to P and A. Cardiovascular: PMI at the midclavicular line. Heart sounds normal. Peripheral pulses are present and equal bilaterally. Abdomen: No organomegaly. Bowel sounds present. Extremities: All extremities normal except for the left lower leg, which shows a good degree of eryt john on the anterior portion of the leg with some circumferential extension, marked tenderness in the area, increased ecchymotic and edematous areas as well. No calf tenderness. No positive Homans sig n. Rectal: Deferred. Impression: Cellulitis of leg, possible early abscess formation. Plan: The patient was admitted and placed on IV vancomycin. An MRI will be obtained to make sure th ere is no underlying hematoma, abscess, or compartment syndrome. HR/MODL Voice ID: [id number]
[2021-05-20] MEDS: INSULIN -REGULAR HUMAN 50 UNIT/0.5 ML ML SQ SCH ×4 (07:30→21:00)
[2021-05-20] MEDS: LOSARTAN/HCTZ 50-12.5 PO SCH (08:41)
[2021-05-20] MEDS: VANCOMYCIN 1.5 GM in NA CHLORIDE 0.9% 500 ML IVPB SCH (08:41)
[2021-05-20] MEDS: AMLODIPINE 10 MG TAB PO SCH (08:41)
[2021-05-20 19:18] LABS: Absolute Lymphocytes (CBC) 1.7 K/uL (0.7-4.9); Hematocrit 42.1 % (39.6-49.0); Lymphocytes % 24.2 % (15.3-44.8); MPV 9.2 fL (7.6-11.3); RBC Red Blood Cell Count 4.56 M/uL (4.33-5.43)
[2021-05-20 19:21] LABS: Potassium 3.9 mmol/L (3.5-5.1)
[2021-05-21] MEDS: VANCOMYCIN 1.5 GM in NA CHLORIDE 0.9% 500 ML IVPB SCH (01:37)
--- NOTE | 2021-05-21 03:36 | HP ---
Date of Admission: 05/19/2021 Subjective: The patient continues to improve. Erythema is still present, not as marked. Ecchymosis has continued to be noticed from below the knee down to the foot. He states that the discomfort is as bad as it has been when he stands up and uses his walker. Objective: Physical examination revealed minimal discomfort over the anterior portion of the leg, bu t no calf tenderness. Assessment And Plan: He was seen by Orthopedic Surgery, who also recommended conservative therapy. Edinson solitario will give another dose of vancomycin tonight and probably send him home tomorrow on oral antibiotic s. HR/MODL Voice ID: [id number]
[2021-05-21] MEDS ORDERED: VANCOMYCIN 1.5 GM in NA CHLORIDE 0.9% 500 ML IVPB SCH (05:00)
[2021-05-21] MEDS: INSULIN -REGULAR HUMAN 50 UNIT/0.5 ML ML SQ SCH ×2 (07:30→11:30)
[2021-05-21] MEDS: LOSARTAN/HCTZ 50-12.5 PO SCH (10:02)
[2021-05-21] MEDS: AMLODIPINE 10 MG TAB PO SCH (10:03)
[2021-05-21 11:28] LABS: Absolute Lymphocytes (CBC) 1.2 K/uL (0.7-4.9); Hematocrit 44.1 % (39.6-49.0); Lymphocytes % 20.2 % (15.3-44.8); MPV 9.1 fL (7.6-11.3); RBC Red Blood Cell Count 4.73 M/uL (4.33-5.43)
[2021-05-21 12:56] VITALS: BP 140/85; TEMP 98.3
--- NOTE | 2021-05-21 16:21 | PN ---
Date of Progress Note: 05/21/2021 The patient's leg continues to improve. He can now dangle it without severe discomfort and is able t o be symptom free with his leg elevated. There is still some erythema, nontender in the calf area. White count is normal. He could be discharged on his Zyvox or combination of clindamycin and doxycyc line and we will follow him up next week. HR/MODL Voice ID: [id number] Report ID: [id number]
== END 2021-05-21 14:29 | disposition home or self-care (01) | DRG 603 ==
LOC: 2ND 17:51 → OBSVTOIN 05-19 09:38
PROVIDERS: ADMIT Family Medicine; ATTEND Family Medicine
DX: L03.116 Cellulitis of left lower limb (principal); E11.9 Type 2 diabetes mellitus without complications; I10 Essential (primary) hypertension; E78.5 Hyperlipidemia, unspecified; K21.9 Gastro-esophageal reflux disease without esophagitis; Z20.822 Contact with and (suspected) exposure to COVID-19
CPT/HCPCS: 36415; 80048; 80202; 81001; 82565; 82947; 85025; 93971; A9577; G0378; G0379; J3370; J7040; J7050; U0003

== ENCOUNTER 2022-02-26 07:30 | Day surgery (SDC) | payer OTHER ==
[2022-02-26] MEDS ORDERED: NA CHLORIDE 0.9% 1,000 ML ONE (07:56)
--- NOTE | 2022-02-26 08:22 | RAD REPORT ---
EXAM DESCRIPTION: Bianca Single View02/26/2022 8:15 am CLINICAL HISTORY: Preop COMPARISON: March 2021 FINDINGS: The lungs appear clear of acute infiltrate. The heart is normal size 11 millimeter lobulated lucency with a sclerotic border is within the proximal right humerus IMPRESSION: Lungs appear clear 11 millimeter lobulated lucency with a sclerotic border within the proximal right humerus probably be nign. Follow-up x-ray in 3 months recommended to assess stability
[2022-02-26] MEDS ORDERED: propofoL 200 MG/20 ML VIAL IV ONE ×3 (09:00→09:45)
[2022-02-26] MEDS ORDERED: LIDOCAINE 2% MPF 5 ML VIAL ONE (09:00)
[2022-02-26] MEDS ORDERED: ONDANSETRON 4 MG/2 ML VIAL ONE (09:00)
[2022-02-26] MEDS ORDERED: FENTANYL CITR 100 MCG/2 ML ONE (09:00)
[2022-02-26] MEDS: CEFAZOLIN SODIUM 1 GM/VIAL ONE ×2 (09:04→09:34)
[2022-02-26] MEDS ORDERED: LIDOCAINE 1% MPF 30 ML VIAL ONE (09:06)
[2022-02-26] MEDS ORDERED: NS 0.9% VIAL 10 ML ONE (09:28)
[2022-02-26] MEDS ORDERED: Mastisol Adhesive Liq ONE (09:43)
--- NOTE | 2022-02-26 10:10 | P.OP ---
Date of Service: 02/26/22 Preop diagnosis: Left forehead mass, chest wall mass Postop diagnosis: Same Procedure performed: Wide excision left forehead mass 3 x 1 cm with layered closure, wide excision chest wall mass 5 x 3 3 cm with layered closure Surgeon: Rowdy John MD Funeral Prearrangement Counselor: Mitra MATHEW Estimated blood loss: Minimal Specimen: Left forehead masssquamous proliferative mass with margins free on frozen section, chest wall mass Findings: As above Anesthesia: MAC Complications: None Drains: None Fluids and blood products: Nonapplicable Disposition: Recovery room Operative note: Patient brought to the OR and placed in supine position. MAC anesthesia begun. Patient prepped and draped in the usual sterile fashion. Marcaine 0.5% infiltrated locally. 15 blade used to make a 3 x 1 cm incision on the left forehead to remove 0.75 cm raised pleomorphic lesion with irregular borders. Entire lesion excised and sent to pathology for frozen section. Frozen section revealed a squamous proliferative lesion with negative margins. Wound irrigated and bleeding controlled cautery. Flaps created. 2-0 chromic used to reapproximate subcutaneous tissue and 3-0 chromic used to close skin. Sterile dressing applied. A 5 x 3 cm incision made on the mid chest region with a 15 blade. A 2.5 cm raised mass with smooth borders excised. The mass sent to pathology after being appropriately labeled. Wound irrigated and bleeding controlled cautery. Flaps created. 2-0 chromic and 3-0 chromic used to reapproximate subcutaneous tissue. 4-0 nylon used to close skin. Sterile dressing applied. Patient awakened and taken to recovery room in good general condition. CC: Dr. Steel's office
[2022-02-26] MEDS ORDERED: CODEINE 30MG/APAP 300MG TAB PO PRN (10:12)
[2022-02-26 10:36] VITALS: BP 118/77; TEMP 97.9
[2022-02-26 11:55] VITALS: O2SAT 100
--- NOTE | 2022-02-26 17:31 | EKG ---
Test Date: 2022-02-26 Test Time: 07:48:06 Bulker: ANITA MEASUREMENT RESULTS: Intervals: Rate: 81 WV: 184 QRSD: 100 QT: 406 QTc: 471 Grant: P: 44 WV: 184 QRS: 65 T: 41 INTERPRETIVE STATEMENTS: Normal sinus rhythm Normal ECG Compared to ECG 11/29/1996 05:24:00 Sinus bradycardia no longer present Electronically Signed On 02-26-22 17:29:55 BULLET CASTING OPERATOR by Hansel Gutiérrez
== END 2022-02-26 11:11 | disposition home or self-care (01) ==
LOC: OR 07:30
PROVIDERS: ATTEND Surgery
PROC: 0JB10ZZ Excision of Face Subcutaneous Tissue and Fascia, Open Approach (ICD-10-PCS; principal; 2022-02-26 09:00)
PROC: 0JB60ZZ Excision of Chest Subcutaneous Tissue and Fascia, Open Approach (ICD-10-PCS; 2022-02-26 09:00)
DX: R22.0 Localized swelling, mass and lump, head (principal); R22.2 Localized swelling, mass and lump, trunk
CPT/HCPCS: 93005; 82947 ×2; 88331; 88332; 88305; 71045; 11443; 11406; J2704 ×3; J2001 ×2; J3010; A4216; J7030; J2405; J0690